=== PATIENT | female | born 1970 | race Caucasian/White ===

== ENCOUNTER 2021-09-09 09:30 | Outpatient (RCR) | payer OTHER, SELFPAY | END 2021-10-03 09:34 | disposition home or self-care (01) | LOC: ANHDMC 09:30 | PROVIDERS: PCP Emergency Medicine; Visit Provider Emergency Medicine | DX: E11.9 Type 2 diabetes mellitus without complications (principal); Z71.89 Other specified counseling | CPT/HCPCS: 99199; G0108; G0109 ==

== ENCOUNTER 2021-10-26 00:19 | Day surgery (SDC) | payer OTHER, SELFPAY ==
[2021-10-14 14:53] VITALS: BMI 25.0
[2021-10-26 10:27] VITALS: BP 151/57; PULSE 74; RESP 18; TEMP 36.4; O2SAT 100
[2021-10-26] MEDS: LACTATED RINGERS 1,000 ML 150 ML IV CONT (10:40)
--- NOTE | 2021-10-26 10:50 | WPDANESEPPF ---
Anes - Initial Pre Proc Eval Procedure: Operation Date: 10/26/21 11:30 Proposed Procedures p Colonoscopy - Kevin Martines MD Date/Time: 10/26/21 10:50 Surgeon: Kevin Martines MD Pre Op Diagnosis: weight loss, positive cologuard Patient Data Age: 51 Gender: F Height: 1.63 m Weight: 65.3 kg Last Vital Signs Temp 36.4 C L 10/26/21 10:27 Pulse 74 10/26/21 10:27 Resp 18 10/26/21 10:27 BP 151/57 H 10/26/21 10:27 Pulse Ox 100 10/26/21 10:27 Allergies Allergy/AdvReac Type Severity Reaction Status Date / Time No Known Allergies Allergy Mild Verified 10/26/21 10:25 Home Medications Medication Instructions Recorded Confirmed Type aspirin [Adult Low Dose Aspirin] 81 mg PO DAILY 10/14/21 10/14/21 History atorvastatin 20 mg PO DAILY 10/14/21 10/14/21 History duloxetine 60 mg PO DAILY 10/14/21 10/14/21 History ergocalciferol (vitamin D2) See Rx Instructions .ROUTE .COMPLEX 10/14/21 10/14/21 History gabapentin 600 mg PO TID 10/14/21 10/14/21 History glimepiride 2 mg PO BID 10/14/21 10/14/21 History hydrocodone-acetaminophen 1 tablet PO BID PRN 10/14/21 10/14/21 History metformin 500 mg PO BID 10/14/21 10/14/21 History mirtazapine 15 mg PO HS 10/14/21 10/14/21 History sitagliptin [Januvia] 100 mg PO DAILY 10/14/21 10/14/21 History Patient hx anesthesia problems: none Family hx anesthesia problems: none Results Review: All pre-operative results and documents have been reviewed as part of the pre-operative evaluation. [facility] Past Medical History Medical History (Updated 10/26/21 @ 10:51 by Marcus Dugan MD) COPD (chronic obstructive pulmonary disease) Diabetes HTN (hypertension) Hyperlipidemia Surgical History Surgical History (Updated 10/26/21 @ 10:51 by Marcus Dugan MD) History of section X 3 Social History Social History Smoking packs per day: 3 Smoking cigarettes per day: 60.0 Years smoked: 35 Smoking pack-years: 105.00 Smoking status: Former smoker Tobacco type: cigarettes Substance use: current Substance use type: marijuana Living arrangements: with family Spiritual care concerns: No Anes - Eval Final PreProcedure Day of Procedure 10/26/21 10:50 Patient weight: normal Heart: regular rate and rhythm Lungs: clear to auscultation Airway: Mallampati scale class II and other (edentulous) Neurological: alert and oriented Last oral intake: >/= 8 hours ASA classification: III Emergent: no Anesthetic plan: proceed Anesthesia type and monitoring: general GIVS and standard monitoring Results Review: All pre-operative results and documents have been reviewed as part of the pre-operative evaluation. Informed Consent: The patient's anesthetic plan and its attendant risks and benefits were discussed with the patient/family/POA. Questions were solicited and answers provided to the satisfaction of the patient/family/POA.
[2021-10-26 10:51] LABS: Glucose Point of Care 182 mg/dl (65-105)
--- NOTE | 2021-10-26 10:58 | PM.HPGS ---
History of Present Illness History of Present Illness Consent: Risks, benefits, and alternatives have been discussed and questions answered. Patient agrees to proceed with procedure. Chief complaint: weight loss, positive cologuard Narrative: Vinita Arce is a 51 year old female with positive cologuard +, she had a colonoscopy 2 years ago and was told normal Review of Systems Constitutional: Constitutional: Denies headache(s) and Denies weakness Eyes: Eyes: Denies blurry vision ENT: Reports Normal hearing present, Denies headache(s) and Denies neck pain Cardiovascular: Cardiovascular: Denies chest pain and Denies dyspnea Respiratory: Respiratory: Denies dyspnea Gastrointestinal: Gastrointestinal: Reports no additional gastrointestinal complaints Genitourinary: Genitourinary: Denies dysuria Musculoskeletal: Musculoskeletal: Denies neck pain Integumentary/Breasts: Skin/Breast: Denies dry skin Neurologic: Reports Normal hearing present, Denies headache(s) and Denies weakness Psychiatric: Psychiatric: Denies anxiety Endocrine: Endocrine: Denies change in body appearance Hematologic/Lymphatic: Hematologic/Lymphatic: Denies easy bleeding Allergic/Immunologic: Allergic/Immunologic: Denies urticaria PMFSH Past Medical History Medical History (Updated 10/26/21 @ 10:59 by Kevin Martines MD) COPD (chronic obstructive pulmonary disease) Diabetes HTN (hypertension) Hyperlipidemia Positive colorectal cancer screening using Cologuard test Surgical History Surgical History (Updated 10/26/21 @ 10:51 by aMrcus Dugan MD) History of section X 3 Social History Social History Smoking packs per day: 3 Smoking cigarettes per day: 60.0 Years smoked: 35 Smoking pack-years: 105.00 Smoking status: Former smoker Tobacco type: cigarettes Substance use: current Substance use type: marijuana Living arrangements: with family Spiritual care concerns: No Meds Home Medications and Allergies Home Medications Medication Instructions Recorded Confirmed Type aspirin [Adult Low Dose Aspirin] 81 mg PO DAILY 10/14/21 10/14/21 History atorvastatin 20 mg PO DAILY 10/14/21 10/14/21 History duloxetine 60 mg PO DAILY 10/14/21 10/14/21 History ergocalciferol (vitamin D2) See Rx Instructions .ROUTE .COMPLEX 10/14/21 10/14/21 History gabapentin 600 mg PO TID 10/14/21 10/14/21 History glimepiride 2 mg PO BID 10/14/21 10/14/21 History hydrocodone-acetaminophen 1 tablet PO BID PRN 10/14/21 10/14/21 History metformin 500 mg PO BID 10/14/21 10/14/21 History mirtazapine 15 mg PO HS 10/14/21 10/14/21 History sitagliptin [Januvia] 100 mg PO DAILY 10/14/21 10/14/21 History Allergies Allergy/AdvReac Type Severity Reaction Status Date / Time No Known Allergies Allergy Mild Verified 10/26/21 10:25 Vital Signs Vital Signs - 24 hr 10/26/21 10:27 Temperature 97.5 F L Pulse Rate 74 Respiratory Rate 18 Blood Pressure 151/57 H Pulse Oximetry 100 Exam Const: General: comfortable and no acute distress HENMT: General nose exam: Normal nares present Eyes: General: appearance normal, both eyes and all related structures Neck: Neck: no JVD Resp: Auscultation: clear to auscultation bilaterally Cardio: Rate: regular rate Rhythm: regular rhythm GI: Inspection: non-distended GI Palp: Yes Soft to palpation Skin: General skin exam: normal color Neuro: General: gait normal Speech: normal speech Extrem: General: normal to inspection Psych: Mental Status: mental status grossly normal Assessment and Plan Assessment and plan (1) Positive colorectal cancer screening using Cologuard test: Code(s): R19.5 - Other fecal abnormalities Status: Acute Assessment and Plan: colonoscopy
[2021-10-26 11:30] VITALS: BP 92/64; PULSE 95; RESP 19; O2SAT 95
[2021-10-26 11:40] VITALS: BP 127/71; PULSE 68; RESP 20; O2SAT 95
[2021-10-26 11:50] VITALS: BP 118/74; PULSE 68; RESP 20; O2SAT 94
== END 2021-10-26 12:03 | disposition home or self-care (01) ==
PROVIDERS: PCP Emergency Medicine; Visit Provider Internal Medicine Gastroenterology
PROC: 0DJD8ZZ Inspection of Lower Intestinal Tract, Via Natural or Artificial Opening Endoscopic (ICD-10-PCS; CPT 45378; principal; 2021-10-26 11:30)
DX: R19.5 Other fecal abnormalities (principal); K63.5 Polyp of colon; K64.8 Other hemorrhoids; J44.9 Chronic obstructive pulmonary disease, unspecified; E11.9 Type 2 diabetes mellitus without complications; I10 Essential (primary) hypertension; E78.5 Hyperlipidemia, unspecified; Z87.891 Personal history of nicotine dependence; Z79.84 Long term (current) use of oral hypoglycemic drugs; Z79.82 Long term (current) use of aspirin; F12.90 Cannabis use, unspecified, uncomplicated
CPT/HCPCS: 45385; 82948; 88305; J2704; J7120

== ENCOUNTER 2021-11-17 09:10 | Outpatient (RCR) | payer OTHER, SELFPAY | END 2021-11-17 10:09 | disposition home or self-care (01) | LOC: ANHDMC 09:10 | PROVIDERS: PCP Emergency Medicine; Visit Provider Emergency Medicine | DX: E11.9 Type 2 diabetes mellitus without complications (principal); Z71.89 Other specified counseling | CPT/HCPCS: G0108 ==

== ENCOUNTER 2024-11-20 01:19 | Day surgery (SDC) | payer OTHER, SELFPAY ==
[2024-11-11 10:44] VITALS: BMI 27.5
--- OUTSIDE RECORDS SUMMARY | 2024-11-20 01:30 | XMS_ITS | Continuity of Care Document ---
Author Organization [facility] Address [address] [address] [place] [address] Phone Care Team Providers Care Secondary Spanish Teacher Name Role Phone Radu Melvin MD Unavailable Unavailable Allergies, Adverse Reactions, Alerts Substance Reaction Status Criticality No Known Allergies Active No Inform ation Medications Medication Instructions Dosage Effective Dates (start - stop) Status Comments Trulicity 0.75 mg/0.5 mL subcutaneous pen injector inject (0.75MG) by subcutaneous route every week 0.75 MG - Active hydrocodone 7.5 mg-acetaminophen 325 mg tablet take 1 tablet by oral route 2 times every day as needed for pain as needed 1 tablet - Active PRN for pain, avoid driving or operate machines [employer]ystem[employer] 3 Plus Sensor device change every 14 days - Active apply to left upper arm Vitamin D2 1,250 mcg (50,000 unit) capsule take 1 capsule by oral route every two week - Active metformin 500 mg tablet take 1 tablet by oral route 2 times every day with morning and evening meals 500 MG - Active Januvia 100 mg tablet take 1 tablet by oral route every day 100 MG - Active Cymbalta 60 mg capsule,delayed release take 1 capsule by oral route every day 60 MG - Active Lipitor 20 mg tablet take 1 Tablet by oral route every day 20 MG - Active glimepiride 2 mg tablet take 1 tablet by oral route 2 times every day 2 MG - Active Neurontin 600 mg tablet take 1 tablet by oral route 3 times every day 600 MG - Active avoid driving or operate machines Wellbutrin XL 150 mg 24 hr tablet, extended release take 1 tablet by oral route every morning 150 MG - Active lisinopril 5 mg tablet take 1 tablet by oral route every day 5 MG - Active OneTouch UltraSoft Lancets BID - Active E11.9 OneTouch Verio test strips BID - Active e11.9 Ventolin HFA 90 mcg/actuation aerosol inhaler inhale 2 puff by inhalation route every 4 - 6 hours as needed as needed - Active PRN for sob Procedures Procedure Date OFFICE/OUTPATIENT VISIT, EST OFFICE/OUTPATIENT VISIT, EST OFFICE/OUTPATIENT VISIT, EST OFFICE/OUTPATIENT VISIT, EST OFFICE/OUTPATIENT VISIT, EST OFFICE/OUTPATIENT VISIT, EST OFFICE/OUTPATIENT VISIT, EST OFFICE/OUTPATIENT VISIT, EST OFFICE/OUTPATIENT VISIT, EST OFFICE/OUTPATIENT VISIT, EST OFFICE/OUTPATIENT VISIT, EST OFFICE/OUTPATIENT VISIT, EST OFFICE/OUTPATIENT VISIT, EST OFFICE/OUTPATIENT VISIT, EST OFFICE/OUTPATIENT VISIT, EST OFFICE/OUTPATIENT VISIT, EST OFFICE/OUTPATIENT VISIT, EST OFFICE/OUTPATIENT VISIT, EST OFFICE/OUTPATIENT VISIT, EST OFFICE/OUTPATIENT VISIT, EST OFFICE/OUTPATIENT VISIT, EST OFFICE/OUTPATIENT VISIT, EST OFFICE/OUTPATIENT VISIT, EST OFFICE/OUTPATIENT VISIT, EST OFFICE/OUTPATIENT VISIT, EST OFFICE/OUTPATIENT VISIT, EST OFFICE/OUTPATIENT VISIT, EST OFFICE/OUTPATIENT VISIT, EST PREV VISIT, EST, AGE 40-64 OFFICE/OUTPATIENT VISIT, EST OFFICE/OUTPATIENT VISIT, EST OFFICE/OUTPATIENT VISIT, EST OFFICE/OUTPATIENT VISIT, EST OFFICE/OUTPATIENT VISIT, EST OFFICE/OUTPATIENT VISIT, EST OFFICE/OUTPATIENT VISIT, EST OFFICE/OUTPATIENT VISIT, EST OFFICE/OUTPATIENT VISIT, EST OFFICE/OUTPATIENT VISIT, EST OFFICE/OUTPATIENT VISIT, EST OFFICE/OUTPATIENT VISIT, EST OFFICE/OUTPATIENT VISIT, EST OFFICE/OUTPATIENT VISIT, EST PREV VISIT, EST, AGE 40-64 OFFICE/OUTPATIENT VISIT, EST OFFICE/OUTPATIENT VISIT, EST OFFICE/OUTPATIENT VISIT, EST OFFICE/OUTPATIENT VISIT, EST OFFICE/OUTPATIENT VISIT, EST OFFICE/OUTPATIENT VISIT, EST OFFICE/OUTPATIENT VISIT, EST OFFICE/OUTPATIENT VISIT, EST OFFICE/OUTPATIENT VISIT, EST OFFICE/OUTPATIENT VISIT, EST OFFICE/OUTPATIENT VISIT, EST OFFICE/OUTPATIENT VISIT, EST OFFICE/OUTPATIENT VISIT, EST OFFICE/OUTPATIENT VISIT, EST OFFICE/OUTPATIENT VISIT, EST OFFICE/OUTPATIENT VISIT, EST PREV VISIT, EST, AGE 40-64 OFFICE/OUTPATIENT VISIT, EST OFFICE/OUTPATIENT VISIT, EST OFFICE/OUTPATIENT VISIT, EST OFFICE/OUTPATIENT VISIT, EST OFFICE/OUTPATIENT VISIT, EST OFFICE/OUTPATIENT VISIT, EST OFFICE/OUTPATIENT VISIT, EST OFFICE/OUTPATIENT VISIT, EST OFFICE/OUTPATIENT VISIT, EST OFFICE/OUTPATIENT VISIT, EST OFFICE/OUTPATIENT VISIT, EST PREV VISIT, EST, AGE 40-64 OFFICE/OUTPATIENT VISIT, EST OFFICE/OUTPATIENT VISIT, EST OFFICE/OUTPATIENT VISIT, EST OFFICE/OUTPATIENT VISIT, EST OFFICE/OUTPATIENT VISIT, EST OFFICE/OUTPATIENT VISIT, EST OFFICE/OUTPATIENT VISIT, EST OFFICE/OUTPATIENT VISIT, EST OFFICE/OUTPATIENT VISIT, EST OFFICE/OUTPATIENT VISIT, EST OFFICE/OUTPATIENT VISIT, EST PREV VISIT, NEW, AGE 40-64 Advance Directives Directive Yes / No Effective Date File Name No Information Encounters Encounter Description Practice Location Reason(s) For Visit Diagnoses Date Provider Providers Copied on Encounter OFFICE/OUTPA TIENT VISIT, EST [facility], [address] [facility] [place] [address], [place] tel:[phone] [facility] pain (chief complaint) DM (chief complaint) annemia1 (chief complaint) Type 2 diabetes mellitus with diabetic nephropathyChronic pain syndromeAnemiaBorde rline osteopenia 5 Olegario Lovelace. [address], [address] , [place]. [phone] OFFICE/OUTPA TIENT VISIT, [facility], [address] [facility] [place] [address], [place] tel:[phone] [facility] DM (chief complaint) anemia1 (chief complaint) HLP (chief complaint) bakc pain1 (chief complaint) Chronic pain syndromeIron deficiency anemiaMixed hyperlipidemiaType 2 diabetes mellitus with diabetic nephropathy 5 Olegario Lovelace. [address], [address] , [place]. tel:[phone] OFFICE/OUTPA TIENT VISIT, [facility], [address] [facility] [address], [place] tel:[phone] [facility] anxiety1 (chief complaint) back pain1 (chief complaint) DM (chief complaint) Mixed hyperlipidemiaType 2 diabetes mellitus with diabetic nephropathyGenerali zed Anxiety DisorderChronic pain syndromeIron deficiency anemia 5 Olegario Chase [address], [place], [place], [address] , [place]. tel:[phone] [facility], [address], [place], [place], [address], [place] tel:[phone] [facility] No Information 5 Olegario Chase [address], [place], [place], [address] , [place]. tel:[phone] OFFICE/OUTPA TIENT VISIT, [facility], [address], [place], [place], [address], [place] tel:[phone] [facility] colon polyp1 (chief complaint) pain (chief complaint) HLP (chief complaint) Mixed hyperlipidemiaChron ic pain syndromePolyp of colon 5 Olegario Chase [address], [place], [place], [address] , [place]. tel:[phone] OFFICE/OUTPA TIENT VISIT, [facility], [address], [place], [place], [address], [place] tel:[phone] [facility] pain (chief complaint) Chronic pain syndrome 4 Olegario Lovelace. [address], [place], [place], [address] , [place]. tel:[phone] OFFICE/OUTPA TIENT VISIT, [facility], [address], [place], [place], [address], [place] tel:[phone] [facility] pain (chief complaint) DM (chief complaint) anxiety1 (chief complaint) weight loss1 (chief complaint) Generalized Anxiety DisorderChronic pain syndromeType 2 diabetes mellitus with diabetic nephropathyAbnormal weight loss 4 Olegario Lovelace. [address], [place], [place], [address] , [place]. tel:[phone] OFFICE/OUTPA TIENT VISIT, [facility], [address], [place], [place], [address], [place] tel:[phone] [facility] pain (chief complaint) anxiety1 (chief complaint) weight gain1 (chief complaint) Abnormal weight gainGeneralized Anxiety DisorderChronic pain syndrome 4 Olegario Lovelace. [address], [place], [place], [address] , [place]. tel:[phone] OFFICE/OUTPA TIENT VISIT, [facility], [address], [place], [place], [address], [place] tel:[phone] [facility] pain (chief complaint) anxiety1 (chief complaint) weight gain1 (chief complaint) iron1 (chief complaint) Chronic pain syndromeAbnormal weight gainGeneralized Anxiety DisorderIron deficiency anemia 4 Olegario Lovelace. [address], [place], [place], [address] , [place]. tel:[phone] OFFICE/OUTPA TIENT VISIT, [facility], [address], [place], [place], [address], [place] tel:[phone] [facility] pain (chief complaint) anxiety1 (chief complaint) weight gain1 (chief complaint) renal (chief complaint) Abnormal weight gainChronic pain syndromeGeneralized Anxiety DisorderEssential (primary) hypertensionStage III chronic renal disease 4 Olegario Lovelace. [address], [address], [place], [place], [address] , [place]. tel:[phone] OFFICE/OUTPA TIENT VISIT, [facility], [address], [place], [place], [address], [place] tel:[phone] [facility] pain (chief complaint) anxiety (chief complaint) iron deficiency 1 (chief complaint) weight gain1 (chief complaint) Chronic pain syndromeGeneralized Anxiety DisorderAbnormal weight gainIron deficiency anemia 4 Olegario Lovelace. [address], [address], [place], [place], [address] , [place]. tel:[phone] OFFICE/OUTPA TIENT VISIT, EST [facility], [address], [place], [place], [address], [place] tel:[phone] [facility] back pain1 (chief complaint) anxiety1 (chief complaint) weight gain1 (chief complaint) Chronic pain syndromeGeneralized Anxiety DisorderAbnormal weight gain 4 Olegario Lovelace. [address], [place], [place], [address] , [place]. [phone] OFFICE/OUTPA TIENT VISIT, [facility], [address], [place], [place], [address], [place] tel:[phone] [facility] back pain1 (chief complaint) iron (chief complaint) D (chief complaint) Chronic pain syndromeIron deficiency anemiaOther specified disorder of bone densityEncntr screen mammogram for malignant neoplasm of breast 4 Olegario Lovelace. [address], [place], [place], [address] , [place]. tel:[phone] OFFICE/OUTPA TIENT VISIT, EST [facility], [address], [place], [place], [address], [place] tel:[phone] [facility] anxiety1 (chief complaint) DM (chief complaint) Iron (chief complaint) pain (chief complaint) Iron deficiency anemiaChronic pain syndromeGeneralized Anxiety DisorderType 2 diabetes mellitus with diabetic nephropathy 4 Olegario Lovelace. [address], [address], [place], [place], [address] , [place]. tel:[phone] OFFICE/OUTPA TIENT VISIT, EST [facility], [address], [place], [place], [address], [place] tel:[phone] [facility] anxiety1 (chief complaint) pain (chief complaint) iron (chief complaint) Chronic pain syndromeGeneralized Anxiety DisorderIron deficiency anemia Feb- 4 Olegario Lovelace. [address], [address], [place], [place], [address] , [place]. tel:[phone] OFFICE/OUTPA TIENT VISIT, [facility], [address], [place], [place], [address], [place] tel:[phone] [facility] iron (chief complaint) anxiety1 (chief complaint) pain (chief complaint) Iron deficiency anemiaChronic pain syndromeGeneralized Anxiety Disorder 4 Olegario Lovelace. [address], [place], [place], [address] , [place]. tel:[phone] OFFICE/OUTPA TIENT VISIT, [facility], [address], [place], [place], [address], [place] tel:[phone] [facility] HLP (chief complaint) Mixed hyperlipidemia 4 Olegario Lovelace. [address], [place], [place], [address] , [place]. tel:[phone] OFFICE/OUTPA TIENT VISIT, [facility], [address], [place], [place], [address], [place] tel:[phone] [facility] pain (chief complaint) DM (chief complaint) iron deficiecy1 (chief complaint) Chronic pain syndromeIron deficiency anemiaType 2 diabetes mellitus with diabetic nephropathy 3 Olegario Chase [address], [place], [place], [address] , [place]. tel:[phone] OFFICE/OUTPA TIENT VISIT, [facility], [address], [place], [place], [address], [place] tel:[phone] [facility] pain (chief complaint) DM (chief complaint) renal (chief complaint) iron deficiency 1 (chief complaint) Chronic pain syndromeIron deficiency anemiaType 2 diabetes mellitus with diabetic nephropathy 3 Olegario Lovelace. [address], [place], [place], [address] , [place]. tel:[phone] OFFICE/OUTPA TIENT VISIT, [facility], [address], [place], [place], [address], [place] tel:[phone] [facility] pain (chief complaint) Chronic pain syndrome May-3 3 Olegario Lovelace. [address], [place], [place], [address] , [place]. tel:[phone] OFFICE/OUTPA TIENT VISIT, [facility], [address], [place], [place], [address], [place] tel:[phone] [facility] HTN (chief complaint) Essential (primary) hypertension 0 3 Olegario Lovelace. [address], [place], [place], [address] , [place]. tel:[phone] OFFICE/OUTPA TIENT VISIT, [facility], [address], [place], [place], [address], [place] tel:[phone] [facility] pain (chief complaint) DM (chief complaint) anemia1 (chief complaint) phos1 (chief complaint) Chronic pain syndromeAnemiaType 2 diabetes mellitus with diabetic nephropathyOther disorders of phosphorus metabolism 3 Olegario Lovelace. [address], [address], [place], [place], [address] , [place]. tel:[phone] OFFICE/OUTPA TIENT VISIT, [facility], [address], [place], [place], [address], [place] tel:[phone] [facility] pain (chief complaint) Chronic pain syndrome 3 Olegario Lovelace. [address], [address], [place], [place], [address] , [place]. tel:[phone] OFFICE/OUTPA TIENT VISIT, [facility], [address], [place], [place], [address], [place] tel:[phone] [facility] back pain1 (chief complaint) renal1 (chief complaint) Chronic pain syndromeStage III chronic renal disease 3 Olegario Lovelace. [address], [place], [place], [address] , [place]. tel:[phone] OFFICE/OUTPA TIENT VISIT, [facility], [address], [place], [place], [address], [place] tel:[phone] [facility] back pain1 (chief complaint) DM (chief complaint) anxiety1 (chief complaint) Generalized Anxiety DisorderChronic pain syndromeType 2 diabetes mellitus with diabetic nephropathy Hero-3 0 3 Melvin Radu. [address], [address], [place], [place], [address] , [place]. tel:[phone] OFFICE/OUTPA TIENT VISIT, [facility], [address], [place], [place], [address], [place] tel:[phone] [facility] anxiety1 (chief complaint) pain (chief complaint) bone1 (chief complaint) Chronic pain syndromeGeneralized Anxiety DisorderOther specified disorder of bone density Hero-0 2 3 Melvin Radu. [address], [place], [place], [address] , [place]. tel:[phone] OFFICE/OUTPA TIENT VISIT, [facility], [address], [place], [place], [address], [place] tel:[phone] [facility] DM (chief complaint) pain1 (chief complaint) anxiety1 (chief complaint) weight loss1 (chief complaint) Generalized Anxiety DisorderType 2 diabetes mellitus with diabetic nephropathyChronic pain syndromeAbnormal weight lossEncounter for oth screening for malignant neoplasm of breast 0 3 Melvin Radu. [address], [address], [place], [place], [address] , [place]. tel:[phone] OFFICE/OUTPA TIENT VISIT, [facility], [address], [place], [place], [address], [place] tel:[phone] [facility] DM (chief complaint) pain (chief complaint) anxiety1 (chief complaint) Chronic pain syndromeGeneralized Anxiety DisorderType 2 diabetes mellitus with diabetic nephropathyOther specified disorder of bone density 0 3 Melvin Radu. [address], [place], [place], [address] , [place]. tel:[phone] OFFICE/OUTPA TIENT VISIT, [facility], [address], [place], [place], [address], [place] tel:[phone] [facility] anxiety1 (chief complaint) anxiety1 (chief complaint) anemia1 (chief complaint) DM (chief complaint) Chronic pain syndromeType 2 diabetes mellitus with diabetic nephropathyAnemiaOt her disorders of phosphorus metabolismGeneraliz ed Anxiety Disorder 3 Olegario Chase [address], [address], [place], [place], [address] , [place]. tel:[phone] PREV VISIT, EST, AGE 40-64 [facility], [address], [place], [place], [address], [place] tel:[phone] [facility] physical (chief complaint) Encounter for general adult medical examination without abnormal findings 3 Olegario Lovelace. [address], [place], [place], [address] , [place]. tel:[phone] OFFICE/OUTPA TIENT VISIT, [facility], [address], [place], [place], [address], [place] tel:[phone] [facility] HLP (chief complaint) pain (chief complaint) DM (chief complaint) weight gain1 (chief complaint) Abnormal weight gainChronic pain syndromeType 2 diabetes mellitus with diabetic nephropathyMixed hyperlipidemia 3 Olegario Chase [address], [place], [place], [address] , [place]. tel:[phone] OFFICE/OUTPA TIENT VISIT, [facility], [address], [place], [place], [address], [place] tel:[phone] [facility] pain (chief complaint) Chronic pain syndrome 2 Olegario Chase [address], [address], [place], [place], [address] , [place]. tel:[phone] OFFICE/OUTPA TIENT VISIT, [facility], [address], [place], [place], [address], [place] tel:[phone] [facility] pain (chief complaint) renal1 (chief complaint) Chronic pain syndromeStage III chronic renal disease 0 2 Olegario Lovelace. [address], [place], [place], [address] , [place]. tel:[phone] OFFICE/OUTPA TIENT VISIT, [facility], [address], [place], [place], [address], [place] tel:[phone] [facility] pain (chief complaint) weight gain (chief complaint) HTN (chief complaint) Chronic pain syndromeAbnormal weight gainEssential (primary) hypertension 2 Olegario Lovelace. [address], [place], [place], [address] , [place]. tel:[phone] OFFICE/OUTPA TIENT VISIT, [facility], [address], [place], [place], [address], [place] tel:[phone] [facility] pain (chief complaint) insomnia1 (chief complaint) Chronic pain syndromePrimary insomnia 2 Olegario Lovelace. [address], [address], [place], [place], [address] , [place]. tel:[phone] OFFICE/OUTPA TIENT VISIT, [facility], [address], [place], [place], [address], [place] tel:[phone] [facility] HTN (chief complaint) pain (chief complaint) Chronic pain syndromeEssential (primary) hypertension 2 Olegario Lovelace. [address], [place], [place], [address] , [place]. tel:[phone] OFFICE/OUTPA TIENT VISIT, [facility], [address], [place], [place], [address], [place] tel:[phone] [facility] anxiety1 (chief complaint) pain1 (chief complaint) HTN (chief complaint) weight gain1 (chief complaint) Essential (primary) hypertensionAbnorma l weight gainGeneralized Anxiety DisorderChronic pain syndrome 2 Olegario Lovelace. [address], [place], [place], [address] , [place]. tel:[phone] OFFICE/OUTPA TIENT VISIT, [facility], [address], [place], [place], [address], [place] tel:[phone] [facility] anxiety1 (chief complaint) pain (chief complaint) HTN (chief complaint) Essential (primary) hypertensionChronic pain syndromeAdjustment disorder with anxietyPrimary insomnia 2 Olegario Radu. [address], [place], [place], [address] , [place]. tel:[phone] OFFICE/OUTPA TIENT VISIT, [facility], [address], [address], [place] tel:[phone] [facility] anxiety1 (chief complaint) pain (chief complaint) vertigo1 (chief complaint) DM (chief complaint) HTN (chief complaint) Essential (primary) hypertensionType 2 diabetes mellitus with diabetic nephropathyChronic pain syndromeGeneralized Anxiety DisorderVertigo 2 Olegario Radu. [address], [place], [place], [address] , [place]. tel:[phone] OFFICE/OUTPA TIENT VISIT, [facility], [address], [address], [place] tel:[phone] [facility] vertigo1 (chief complaint) HTN (chief complaint) anxiety1 (chief complaint) pain (chief complaint) Chronic pain syndromeGeneralized Anxiety DisorderEssential (primary) hypertensionBenign paroxysmal vertigo, bilateralPolyp of colonEncounter for oth screening for malignant neoplasm of breast 2 Olegario Lovelace. [address], [place], [place], [address] , [place]. tel:[phone] OFFICE/OUTPA TIENT VISIT, [facility], [address], [place], [place], [address], [place] tel:[phone] [facility] anxiety1 (chief complaint) pain (chief complaint) weight loss1 (chief complaint) Chronic pain syndromeGeneralized Anxiety DisorderAbnormal weight loss 2 Olegario Lovelace. [address], [address], [place], [place], [address] , [place]. [phone] OFFICE/OUTPA TIENT VISIT, [facility], [address], [place], [place], [address], [place] [phone] [facility] HTN (chief complaint) pain1 (chief complaint) anxiety1 (chief complaint) UTI1 (chief complaint) Essential (primary) hypertensionGeneral ized Anxiety DisorderChronic pain syndromeUrinary tract infectionAbnormal weight loss 2 Olegario Lovelace. [address], [address], [place], [place], [address] , [place]. tel:[phone] OFFICE/OUTPA TIENT VISIT, [facility], [address], [place], [place], [address], [place] tel:[phone] [facility] HLP (chief complaint) renal1 (chief complaint) UTI1 (chief complaint) DM (chief complaint) colon (chief complaint) dizziness1 (chief complaint) Abnormal weight lossType 2 diabetes mellitus with diabetic nephropathyEssentia l (primary) hypertensionUrinary tract infectionHyperlipid emia 2 Olegario Lovelace. [address], [address], [place], [place], [address] , [place]. tel:[phone] OFFICE/OUTPA TIENT VISIT, [facility], [address], [place], [place], [address], [place] tel:[phone] [facility] back pain1 (chief complaint) anxiety1 (chief complaint) Chronic pain syndromeGeneralized Anxiety Disorder 2 Olegario Lovelace. [address], [place], [place], [address] , [place]. tel:[phone] PREV VISIT, EST, AGE 40-64 [facility], [address], [place], [place], [address], [place] tel:[phone] [facility] physical (chief complaint) Encounter for general adult medical examination without abnormal findings 1 Olegario Lovelace. [address], [place], [place], [address] , [place]. tel:[phone] OFFICE/OUTPA TIENT VISIT, [facility], [address], [place], [place], [address], [place] tel:[phone] [facility] pain (chief complaint) weight loss1 (chief complaint) Chronic pain syndromeAbnormal weight loss 1 Olegario Chase [address], [address], [place], [place], [address] , [place]. tel:[phone] OFFICE/OUTPA TIENT VISIT, [facility], [address], [place], [place], [address], [place] tel:[phone] [facility] pain (chief complaint) anxiety1 (chief complaint) DM (chief complaint) Type 2 diabetes mellitus with diabetic nephropathyChronic pain syndrome 1 Olegario Chase [address], [address], [place], [place], [address] , [place]. tel:[phone] OFFICE/OUTPA TIENT VISIT, [facility], [address], [place], [place], [address], [place] tel:[phone] [facility] HTN (chief complaint) anxiety1 (chief complaint) pain (chief complaint) renal (chief complaint) DM (chief complaint) Chronic pain syndromeType 2 diabetes mellitus with diabetic nephropathyAbnormal weight lossEssential (primary) hypertensionGeneral ized Anxiety Disorder 1 Olegario Lovelace. [address], [address], [place], [place], [address] , [place]. tel:[phone] OFFICE/OUTPA TIENT VISIT, [facility], [address], [place], [place], [address], [place] tel:[phone] [facility] pain (chief complaint) renal (chief complaint) Renal diseaseChronic pain syndrome 1 Olegario Lovelace. [address], [address], [place], [place], [address] , [place]. tel:[phone] OFFICE/OUTPA TIENT VISIT, [facility], [address], [place], [place], [address], [place] tel:[phone] [facility] back pain1 (chief complaint) Chronic pain syndrome 1 Olegario Lovelace. [address], [address], [place], [place], [address] , [place]. tel:[phone] OFFICE/OUTPA TIENT VISIT, [facility], [address], [place], [place], [address], [place] tel:[phone] [facility] back pain1 (chief complaint) Chronic pain syndrome 1 Olegario Lovelace. [address], [place], [place], [address] , [place]. [phone] OFFICE/OUTPA TIENT VISIT, [facility], [address], [place], [place], [address], [place] tel:[phone] [facility] pain (chief complaint) DM (chief complaint) renal (chief complaint) phos (chief complaint) Type 2 diabetes mellitus with diabetic mononeuropathyRenal diseaseOther disorders of phosphorus metabolismVitamin D deficiency, unspecifiedChronic pain syndrome 1 Olegario Lovelace. [address], [address], [place], [place], [address] , [place]. tel:[phone] OFFICE/OUTPA TIENT VISIT, [facility], [address], [place], [place], [address], [place] tel:[phone] [facility] pain1 (chief complaint) HLP (chief complaint) phos1 (chief complaint) DM (chief complaint) Chronic pain syndromeType 2 diabetes mellitus with diabetic mononeuropathyOther disorders of phosphorus metabolismHyperlipi demia 1 Olegario Lovelace. [address], [address], [place], [place], [address] , [place]. [phone] OFFICE/OUTPA TIENT VISIT, [facility], [address], [place], [place], [address], [place] tel:[phone] [facility] pain (chief complaint) DM (chief complaint) Type 2 diabetes mellitus with diabetic mononeuropathyChron ic pain syndrome 1 Olegario Lovelace. [address], [address], [place], [place], [address] , [place]. tel: [phone] OFFICE/OUTPA TIENT VISIT, [facility], [address], [place], [place], [address], [place] [phone] [facility] pain1 (chief complaint) DM (chief complaint) Type 2 diabetes mellitus with diabetic mononeuropathyChron ic pain syndrome 1 Olegario Lovelace. [address], [address], [place], [place], [address] , [place]. tel:[phone] OFFICE/OUTPA TIENT VISIT, [facility], [address], [place], [place], [address], [place] tel:[phone] [facility] pain (chief complaint) DM (chief complaint) mammo (chief complaint) Chronic pain syndromeType 2 diabetes mellitus with diabetic mononeuropathyEncou nter for oth screening for malignant neoplasm of breast 1 Olegario Lovelace. [address], [address], [place], [place], [address] , [place]. tel: [phone] OFFICE/OUTPA TIENT VISIT, [facility], [address], [place], [place], [address], [place] [phone] [facility] pain1 (chief complaint) DM (chief complaint) Chronic pain syndromeType 2 diabetes mellitus with diabetic mononeuropathy 0 Olegario Lovelace. [address], [place], [place], [address] , [place]. tel: [phone] OFFICE/OUTPA TIENT VISIT, [facility], [address], [place], [place], [address], [place] tel:[phone] [facility] pain1 (chief complaint) DM (chief complaint) Type 2 diabetes mellitus with diabetic mononeuropathyChron ic pain syndrome 0 Olegario Chase [address], [address], [place], [place], [address] , [place]. tel:[phone] OFFICE/OUTPA TIENT VISIT, [facility], [address] [place], [address], [place] tel:[phone] [facility] DM (chief complaint) Hypertensi on (chief complaint) Back pain 1 (chief complaint) Type 2 diabetes mellitus with diabetic mononeuropathyChron ic pain syndromeEssential (primary) hypertension 0 Olegario Chase [address], [address], [place], [place], [address] , [place]. tel:[phone] OFFICE/OUTPA TIENT VISIT, [facility], [address] [place], [address], [place] tel:[phone] [facility] HTN (chief complaint) DM (chief complaint) anxiety1 (chief complaint) pain (chief complaint) renal (chief complaint) Chronic pain syndromeType 2 diabetes mellitus with diabetic mononeuropathyRenal diseaseOther disorders of phosphorus metabolismEssential (primary) hypertension 0 Olegario Chase [address], [place], [place], [address] , [place]. tel:[phone] OFFICE/OUTPA TIENT VISIT, [facility], [address] [place], [address], [place] tel:[phone] [facility] pain (chief complaint) Chronic pain syndrome 0 Olegario Chase [address], [address] [place], [address] , [place]. tel:[phone] PREV VISIT, EST, AGE 40-64 [facility], [address] [place], [address], [place] tel:[phone] [facility] physical (chief complaint) Encntr for general adult medical exam w/o abnormal findings 0 Olegario Lovelace. [address], [place], [place], [address] , [place]. tel:[phone] Referring Provider: Renetta Badillo [address], [place], [place], [address]. tel:[phone] OFFICE/OUTPA TIENT VISIT, [facility], [address], [place], [place], [address], [place] tel:[phone] [facility] pain (chief complaint) Chronic pain syndrome 0 Olegario Lovelace. [address], [place], [place], [address] , [place]. tel:[phone] Referring Provider: Renetta Badillo [address], [place], [place], [address]. tel:[phone] OFFICE/OUTPA TIENT VISIT, [facility], [address], [place], [place], [address], [place] tel:[phone] [facility] pain (chief complaint) HLP (chief complaint) anxiety1 (chief complaint) DM (chief complaint) HyperlipidemiaChron ic pain syndromeType 2 diabetes mellitus with diabetic mononeuropathyDepre ssion 0 Olegario Lovelace. [address], [place], [place], [address] , [place]. tel:[phone] Referring Provider: Renetta Badillo [address], [place], [place], [address]. tel:[phone] OFFICE/OUTPA TIENT VISIT, [facility], [address], [place], [place], [address], [place] tel:[phone] [facility] pain (chief complaint) Chronic pain syndrome 0 Olegario Lovelace. [address], [place], [place], [address] , [place]. tel:[phone] Referring Provider: Renetta Badillo [address], [place], [place], [address]. tel:[phone] OFFICE/OUTPA TIENT VISIT, [facility], [address], [place], [place], [address], [place] tel:[phone] [facility] pain (chief complaint) HTN (chief complaint) Chronic pain syndromeEssential (primary) hypertension 0 Olegario Lovelace. [address], [place], [place], [address] , [place]. tel:[phone] Referring Provider: Radu Melvin, [address], [place], [place], [address]. tel:[phone] OFFICE/OUTPA TIENT VISIT, [facility], [address], [place], [place], [address], [place] tel:[phone] [facility] pain1 (chief complaint) HLP (chief complaint) Chronic pain syndromeHyperlipide irma 0 Olegario Lovelace. [address], [place], [place], [address] , [place]. tel:[phone] Referring Provider: Radu Melvin, [address], [place], [place], [address]. tel:[phone] OFFICE/OUTPA TIENT VISIT, [facility], [address], [place], [place], [address], [place] tel:[phone] [facility] pain (chief complaint) Chronic pain syndrome 0 Olegario Lovelace. [address], [place], [place], [address] , [place]. tel:[phone] Referring Provider: Radu Melvin, [address], [place], [place], [address]. tel:[phone] OFFICE/OUTPA TIENT VISIT, [facility], [address], [place], [place], [address], [place] tel:[phone] [facility] pain1 (chief complaint) anxiety1 (chief complaint) Chronic pain syndromeDepression - 9 Olegario Lovelace. [address], [place], [place], [address] , [place]. tel:[phone] Referring Provider: Renetta Badillo [address], [place], [place], [address]. tel:[phone] OFFICE/OUTPA TIENT VISIT, [facility], [address], [place], [place], [address], [place] tel:[phone] [facility] chronic pain1 (chief complaint) depression 1 (chief complaint) DM (chief complaint) postmeno (chief complaint) DyspareuniaChronic pain syndromeType 2 diabetes mellitus with diabetic mononeuropathyDepre ssion 9 Olegario Lovelace. [address], [place], [place], [address] , [place]. tel:[phone] Referring Provider: Renetta Badillo [address], [place], [place], [address]. tel:[phone] OFFICE/OUTPA TIENT VISIT, [facility], [address], [place], [place], [address], [place] tel:[phone] [facility] back pain1 (chief complaint) GERD1 (chief complaint) renal (chief complaint) pain1 (chief complaint) Chronic pain syndromeRenal diseaseGERD w/o esophagitisDyspareu ofelia 9 Olegario Lovelace. [address], [place], [place], [address] , [place]. tel:[phone] Referring Provider: Renetta Badillo [address], [place], [place], [address]. tel:[phone] OFFICE/OUTPA TIENT VISIT, [facility], [address], [place], [place], [address], [place] tel:[phone] [facility] chronic pain (chief complaint) sob (chief complaint) mamm (chief complaint) EmphysemaChronic pain syndromeEncounter for oth screening for malignant neoplasm of breast 9 Olegario Lovelace. [address], [place], [place], [address] , [place]. tel:[phone] Referring Provider: Renetta Badillo [address], [place], [place], [address]. tel:[phone] OFFICE/OUTPA TIENT VISIT, EST [facility], [address], [place], [place], [address], tel:[phone] [facility] dermatitis 1 (chief complaint) glucose1 (chief complaint) leukopenia 1 (chief complaint) renal1 (chief complaint) chronic pain1 (chief complaint) metabolic1 (chief complaint) Chronic pain syndromeHyperglycem iaLeukopeniaVitamin D deficiency, unspecifiedRenal diseaseContact dermatitis due to plant, except food 9 Olegario Lovelace. [address], [place], [place], [address] , [place]. [phone] Referring Provider: Renetta Badillo [address], [place], [place], [address]. tel:[phone] PREV VISIT, EST, AGE 40-64 [facility], [address], [place], [place], [address], [place] tel:[phone] [facility] Physical (chief complaint) Encntr for general adult medical exam w/o abnormal findings 9 Olegario Lovelace. [address], [place], [place], [address] , [place]. [phone] Referring Provider: Renetta Badillo [address], [place], [place], [address]. tel:[phone] OFFICE/OUTPA TIENT VISIT, EST [facility], [address], [place], [place], [address], [place] tel:[phone] [facility] DM (chief complaint) HLP (chief complaint) chronic pain1 (chief complaint) Anemia1 (chief complaint) HyperlipidemiaType 2 diabetes mellitus with diabetic mononeuropathyChron ic pain syndromeAnemia 9 Olegario Lovelace. [address], [place], [place], [address] , [place]. [phone] Referring Provider: [address], [place], [place], [address]. tel:[phone] OFFICE/OUTPA TIENT VISIT, [facility], [address], [place], [place], [address], [place] tel:[phone] [facility] back pain1 (chief complaint) emphysema1 (chief complaint) Chronic pain syndromeEmphysema 9 Olegario Lovelace. [address], [place], [place], [address] , [place]. tel:[phone] Referring Provider: Renetta Badillo [address], [place], [place], [address]. tel:[phone] OFFICE/OUTPA TIENT VISIT, [facility], [address], [place], [place], [address], [place] tel:[phone] [facility] chronic pain1 (chief complaint) Chronic pain syndromeRenal disease 9 Olegario Lovelace. [address], [place], [place], [address] , [place]. tel:[phone] Referring Provider: Renetta Badillo [address], [place], [place], [address]. tel:[phone] OFFICE/OUTPA TIENT VISIT, [facility], [address], [place], [place], [address], [place] tel:[phone] [facility] back pain1 (chief complaint) neck pain1 (chief complaint) copd1 (chief complaint) GERD1 (chief complaint) EmphysemaChronic pain syndromeCervicalgia GERD w/o esophagitis 9 Olegario Lovelace. [address], [place], [place], [address] , [place]. tel:[phone] Referring Provider: Renetta Badillo [address], [place], [place], [address]. tel:[phone] OFFICE/OUTPA TIENT VISIT, [facility], [address], [place], [place], [address], [place] tel:[phone] [facility] back pain1 (chief complaint) Chronic pain syndrome 9 Olegario Lovelace. [address], [place], [place], [address] , [place]. tel:[phone] Referring Provider: Renetta Badillo [address], [place], [place], [address]. tel:[phone] OFFICE/OUTPA TIENT VISIT, [facility], [address] [place], [address], [place] tel:[phone] [facility] HLP (chief complaint) back pain1 (chief complaint) DM (chief complaint) Type 2 diabetes mellitus with diabetic mononeuropathyChron ic pain syndromeHyperlipide miaRenal disease 9 Olegario Lovelcae. [address], [place], [place], [address] , [place]. tel:[phone] Referring Provider: Renetta Badillo [address], [place], [place], [address]. tel:[phone] OFFICE/OUTPA TIENT VISIT, [facility], [address] [place], [address], [place] tel:[phone] [facility] HTN (chief complaint) renal disease1 (chief complaint) DM (chief complaint) back pain1 (chief complaint) Renal diseaseType 2 diabetes mellitus with diabetic mononeuropathyEssen tial (primary) hypertensionChronic pain syndrome 8 Olegario Lovelace. [address], [place], [place], [address] , [place]. tel:[phone] Referring Provider: Renetta Badillo [address], [place], [place], [address]. tel:[phone] OFFICE/OUTPA TIENT VISIT, [facility], [address], [address], [place] tel:[phone] [facility] DM (chief complaint) anemia1 (chief complaint) renal1 (chief complaint) back pain1 (chief complaint) Type 2 diabetes mellitus with diabetic mononeuropathyAnemi aRenal diseaseHyperkalemia Chronic pain syndrome 2 0201 8 Olegario Lovelace. [address], [place], [place], [address] , [place]. tel:[phone] Referring Provider: Renetta Badillo [address], [place], [place], [address]. tel:[phone] OFFICE/OUTPA TIENT VISIT, [facility], [address], [place], [place], [address], [place] tel:[phone] [facility] anemia1 (chief complaint) kcl (chief complaint) back pain1 (chief complaint) HTn (chief complaint) Essential (primary) hypertensionHyperka lemiaRenal diseaseAnemiaChroni c pain syndrome 5 8 Olegario Lovelace. [address], [place], [place], [address] , [place]. tel:[phone] Referring Provider: Renetta Badillo [address], [place], [place], [address]. tel:[phone] OFFICE/OUTPA TIENT VISIT, [facility], [address], [place], [address], [place] tel:[phone] [facility] anemia1 (chief complaint) renal disease1 (chief complaint) KCL (chief complaint) back pain1 (chief complaint) HyperkalemiaRenal diseaseChronic pain syndromeEssential (primary) hypertensionAnemia 8 Olegario Lovelace. [address], [place], [place], [address] , [place]. tel:[phone] Referring Provider: Renetta Badillo [address], [place], [place], [address]. tel:[phone] OFFICE/OUTPA TIENT VISIT, [facility], [address], [place], [place], [address], [place] tel:[phone] [facility] DM (chief complaint) renal (chief complaint) anemia1 (chief complaint) chronic pain1 (chief complaint) AnemiaRenal diseaseHyperkalemia Essential (primary) hypertensionChronic pain syndromeType 2 diabetes mellitus with diabetic mononeuropathy 8 Olegario Lovelace. [address], [facility] [place], [address] , . [phone] Referring Provider: Renetta Badillo [address], [place], [place], [address]. tel:[phone] PREV VISIT, NEW, AGE 40-64 [facility], [address], [place], [place], [address], tel:[phone] [facility] PHysical (chief complaint) Encntr for general adult medical exam w/o abnormal findings 8 Olegario Lovelace. [address], [place], [place], [address] , . [phone] Referring Provider: Renetta Badillo [place], [place], [address]. tel:[phone] Family History Family Member Type Diagnosis Age At Onset Father Problem (finding) COPD (Cause Of ) 6 3 Mother Problem (finding) Alive and well Sister Problem (finding) Alive and well Mother Problem (finding) Diabetes mellitus Payers Payer name Insurance type Covered libertarian ID Authortirsoa rebeca(s) [facility] [id number] Social History Type Description Quantity Date Captured Comments Alcohol Use Details No Caffeine Use Details Unknown Tobacco Use Status Ex-cigarette smoker 025 Smoking Status Former smoker Sex Female Vital Signs Date / Time: Height Weight BMI Pulse Rate Blood Pressure Temperature Respiratory Rate Body Surface Area Head Circumference BMI percentile Pulse Ox Inhaled Ox 11:10 AM 64.00 in 156.00 lbs 26.7 8 kg/m eter (2) 78 /min 110/70 mm[Hg] 97.2 F 16 /min Chief Complaint And Reason For Visit From encounter dated '11/18/2024 10:58'. pain (chief complaint). Description: Pt has chronic low back pain Pt denies any worsening pain pt denies any loss of bladder control. Pt failed NSAID and ultram. Pt has DDD. Pt takes norco PRN for pain and dong ok Pt has numbness both leg and feet Pt takes neurontin. Pt denies any claudication. pt denies any cold feet. Pt denies any saddle area paresthesia. Pt takes norco and neurontin and doing ok currently DM (chief complaint). Description: Pt has DM Pt is on metformin, januvia and amaryl and januvia Pt tolerating januvia ok. Pt has not checked her glucose for a while Pt wants to try freestyle annemia1 (chief complaint). Description: Pt has stable anemia. Pt has monty for colonoscopy in one week Plan Of Treatment Date Type Action Status Goal Tobacco cessation counseling completed Goal Tobacco cessation counseling completed Goal Special diet education compl eted Goal Tobacco cessation counseling completed Goal Tobacco cessation counseling completed Goal Special diet education compl eted Goal Tobacco cessation counseling completed Goal Special diet education compl eted Goal Tobacco cessation counseling completed Goal Special diet education compl eted Goal Tobacco cessation counseling completed Goal Tobacco cessation counseling completed Goal Special diet education compl eted Goal Tobacco cessation counseling completed Goal Special diet education compl eted Goal Prescribed dietary intake co mpleted Goal Tobacco cessation counseling completed Goal Special diet education compl eted Goal Tobacco cessation counseling completed Goal Special diet education compl eted Goal Tobacco cessation counseling completed Goal Tobacco cessation counseling completed Goal Special diet education compl eted Goal Special diet education compl eted Goal Special diet education compl eted Goal Tobacco cessation counseling completed Goal Special diet education compl eted Goal Special diet education compl eted Referral Ordered: US, PELVIC (NONOBSTETRIC); ordered Referral Ordered: Hematology (related to Iron deficiency anemia) ordered Referral Ordered: Referrals: Hematology. Evaluate and treat ordered Referral Ordered: Physical Therapy (related to Type 2 diabetes mellitus with diabetic nephropathy) ordered Referral Referred To: Physical Therapy Ordered: Referrals: Physical Therapy. Evaluate and treat ordered Referral Ordered: Saige Callahan -[facility] Phys[facility] : Family Medicine (related to Dyspareunia) ordered Referral Ordered: DXA BONE DENSITY, AXIAL ordered Referral Referred To: Saige Callahan [address] [facility] [place], [place], [phone] Ordered: Referrals: Allopathic & Osteopathic Physicians : Family Medicine. Saige Callahan. Evaluate and treat ordered Referral Ordered: CHEST X-RAY PA/LAT TWO-VIEWS ordered Referral Ordered: US CAROTID ordered Referral Ordered: CERVICAL SPINE XRAY 7 VIEWS ordered Referral Ordered: LUMBAR XRAY AP AND LAT ONLY ordered Referral Ordered: Vic Valencia -[facility] : Internal Medicine : Nephrology (related to Hyperkalemia) ordered Referral Referred To: Vic Valencia [address] [facility] [place], [place] [phone] Ordered: Referrals: Allopathic & Osteopathic Physicians : Internal Medicine : Nephrology. Vic Valencia. Evaluate and treat ordered Referral Ordered: COLONOSCOPY AND BIOPSY ordered Referral Ordered: MAMMOGRAM, SCREENING ordered Appointment [place]a Arce BOOKED History Of Present Illness Encounter Date Complaint History Of Prese nt Illness pain Pt has chronic l ow back pain Pt denies any worsening pain pt denies any loss of bladder control. Pt failed NSAID and ultram. Pt has DDD. Pt takes norco PRN for pain and dong ok Pt has numbness both leg and feet Pt takes neurontin. Pt denies any claudication. pt denies any cold feet. Pt denies any saddle area paresthesia. Pt takes norco and neurontin and doing ok currently DM Pt has DM Pt is on metformin, januvia and amaryl and januvia Pt tolerating januvia ok. Pt has not checked her glucose for a while Pt wants to try freestyle annemia1 Pt has stable an emia. Pt has monty for colonoscopy in one week bakc pain1 Pt has chronic l ow back pain Pt denies any worsening pain pt denies any loss of bladder control. Pt failed NSAID and ultram. Pt has DDD. Pt takes norco PRN for pain and dong ok Pt has numbness both leg and feet Pt takes neurontin. Pt denies any claudication. pt denies any cold feet. Pt denies any saddle area paresthesia. Pt takes norco and neurontin and doing ok currently DM Pt has DM Pt edie es on metformin, januvia and amaryl and her glucose and a1c are worse. Pt denies any polyuria, polydipsia anemia1 pt has mild anem ia but iron ok Pt has colonoscopy scheduled soon. her renal function is normal now. pt denies any bleeding HLP Pt has HLP Her l ipid profile is ok with lipitor anxiety1 Pt has chronic a nxiety and depression Pt takes wellbutrin and cymbalta and doing ok Pt denies any suicidal or homicidal thought. pt denies any crying spells DM Pt has DM Pt edie es metformin and januvia and amaryl. Her glucose is around 120. pt denies any polyuria, polydipsia. back pain1 Pt has chronic l ow back pain Pt denies any worsening pain pt denies any loss of bladder control. Pt failed NSAID and ultram. Pt has DDD. Pt takes norco PRN for pain and dong ok Pt has numbness both leg and feet Pt takes neurontin. Pt denies any claudication. pt denies any cold feet. Pt denies any saddle area paresthesia. Pt takes norco and neurontin and doing ok currently HLP Pt has HLP Pt ta kes lipitor pt denies any myalgia Pt needs lipitor refilled colon polyp1 Pt has serrated polyps on colonoscopy 2021. Pt denies any GI issue. pain Pt has chronic l ow back pain Pt denies any worsening pain pt denies any loss of bladder control. Pt failed NSAID and ultram. Pt has DDD. Pt takes norco PRN for pain and dong ok Pt has numbness both leg and feet Pt takes neurontin. Pt denies any claudication. pt denies any cold feet. Pt denies any saddle area paresthesia. Pt takes norco and neurontin and doing ok currently pain Pt has chronic l ow back pain Pt denies any worsening pain pt denies any loss of bladder control. Pt failed NSAID and ultram. Pt has DDD. Pt takes norco PRN for pain and dong ok Pt has numbness both leg and feet Pt takes neurontin. Pt denies any claudication. pt denies any cold feet. Pt denies any saddle area paresthesia. Pt takes norco and neurontin and doing ok currently pain Pt has chronic l ow back pain Pt denies any worsening pain pt denies any loss of bladder control. Pt failed NSAID and ultram. Pt has DDD. Pt takes norco PRN for pain and dong ok Pt has numbness both leg and feet Pt takes neurontin. Pt denies any claudication. pt denies any cold feet. Pt denies any saddle area paresthesia. Pt takes norco and neurontin and doing ok currently DM Pt has DM Pt edie es metformin ,januvia and amaryl .Pt has not been checking her glucose Pt denies any hypoglycemia episodes. Pt doing ok anxiety1 Pt has chronic a nxiety and depression and she is taking cymbalta and wellbutrin and doing ok Pt is off abilify and she has been doing ok Pt denies any suicidal or homicidal thought Pt denies any crying spells weight loss1 Pt lost 7 pounds since off abilify. anxiety1 Pt has chronic a nxiety and depression. Pt takes wellbutrin and Cymbalta and doing ok. Pt has not had abilify last month . weight gain1 Pt has been gain ing weight. Pt stopped abilify already. pain Pt has chronic l ow back pain Pt denies any worsening pain pt denies any loss of bladder control. Pt failed NSAID and ultram. Pt has DDD. Pt takes norco PRN for pain and dong ok Pt has numbness both leg and feet Pt takes neurontin. Pt denies any claudication. pt denies any cold feet. Pt denies any saddle area paresthesia. Pt takes norco and neurontin and doing ok currently anxiety1 Pt has chronic a nxiety and depression Pt takes cymbalta, wellbutrin and abilify and she is doing well P denies any suicidal or homicidal thought Pt denies any crying spells. pain Pt has chronic l ow back pain Pt denies any worsening pain pt denies any loss of bladder control. Pt failed NSAID and ultram. Pt has DDD. Pt takes norco PRN for pain and dong ok Pt has numbness both leg and feet Pt takes neurontin. Pt denies any claudication. pt denies any cold feet. Pt denies any saddle area paresthesia. Pt takes norco and neurontin and doing ok currently weight gain1 Pt has been gain ing weight ,which is probably due to abilify Pt does not increasing appetite with abilify iron1 Pt has iron defi ciency anemia Pt is receiving iron infusions Pt just saw hematology and had lab done Pt denies any bleeding anxiety1 Pt has chronic a nxiety and depression Pt takes cymbalta, wellbutrin and abilify and she is doing well P denies any suicidal or homicidal thought Pt denies any crying spells. weight gain1 Pt has been gain ing weight with abilify. renal Pt has stage III renal disease. Pt saw nephrology yesterday and her kcl is borderline high Pt was told to monitor pain Pt has chronic l ow back pain Pt denies any worsening pain pt denies any loss of bladder control. Pt failed NSAID and ultram. Pt has DDD. Pt takes norco PRN for pain and dong ok Pt has numbness both leg and feet Pt takes neurontin. Pt denies any claudication. pt denies any cold feet. Pt denies any saddle area paresthesia. Pt takes norco and neurontin and doing ok currently anxiety Additional infor mabel: Pt has chronic anxiety and depression Pt takes cymbalta, wellbutrin and abilify and she is doing well P denies any suicidal or homicidal thought Pt denies any crying spells. pain Pt has chronic l ow back pain Pt denies any worsening pain pt denies any loss of bladder control. Pt failed NSAID and ultram. Pt has DDD. Pt takes norco PRN for pain and dong ok Pt has numbness both leg and feet Pt takes neurontin. Pt denies any claudication. pt denies any cold feet. Pt denies any saddle area paresthesia. Pt takes norco and neurontin and doing ok currently iron deficiency1 pT has iron def iciency anemia. s/p iron infusion recently and she just had lab done by hematology. Pt denies any bleeding Pt has not done pelvic ultrasound yet weight gain1 Pt has been gain ing weight. Pt is on 5 mg abilify now back pain1 Pt has chronic l ow back pain Pt denies any worsening pain pt denies any loss of bladder control. Pt failed NSAID and ultram. Pt has DDD. Pt takes norco PRN for pain and dong ok Pt has numbness both leg and feet Pt takes neurontin. Pt denies any claudication. pt denies any cold feet. Pt denies any saddle area paresthesia. Pt takes norco and neurontin and doing ok currently anxiety1 Pt has chronic a nxiety and depression Pt takes cymbalta, wellbutrin and abilify and she is doing well P denies any suicidal or homicidal thought Pt denies any crying spells. Her mood is much better now weight gain1 Pt has been gain ing weight .Pt notices increasing appetite lately pt has been taking 10 mg abilify for the past 3 months iron Pt has iron defi ciency anemia Pt has not done pelvic ultrasound yet. D Pt has vitamin D deficiency Pt takes calcium as well. back pain1 Pt has chronic l ow back pain Pt denies any worsening pain pt denies any loss of bladder control. Pt failed NSAID and ultram. Pt has DDD. Pt takes norco PRN for pain and dong ok Pt has numbness both leg and feet Pt takes neurontin. Pt denies any claudication. pt denies any cold feet. pt doing ok Pt denies any saddle area paresthesia. Pt takes norco and neurontin and she has been taking 5 mg norco for long time and it does not work anymore for her pain anxiety1 Pt has chronic a nxiety and depression . pt feels sluggish and lack of energy and lack of motivation with frequent crying spells. Pt is on cymbalta and abilify currently Pt denies any suicidal or homicidal thought.. Pt is on cymbalta, abilify and wellbutrin and overall her mood improved but she still does not feel happy DM Pt has DM, Pt ta kes januvia, metformin and amaryl and trulicity Pt states that her glucose is around 100 Pt denies any hypoglycemia. Iron Pt has iron defi ciency anemia Pt is seeing hematology and she failed oral iron supplement and she just received several rounds of iron infusion Pt does feel fatigue Pt denies any dizziness or sob. Pt has not noticed any improvement in her mood pain Pt has chronic l ow back pain Pt denies any worsening pain pt denies any loss of bladder control. Pt failed NSAID and ultram. Pt has DDD. Pt takes norco PRN for pain and dong ok Pt has numbness both leg and feet Pt takes neurontin. Pt denies any claudication. pt denies any cold feet. pt doing ok Pt denies any saddle area paresthesia. Pt takes norco and neurontin and doing ok pain Pt has chronic l ow back pain Pt denies any worsening pain pt denies any loss of bladder control. Pt failed NSAID and ultram. Pt has DDD. Pt takes norco PRN for pain and dong ok Pt has numbness both leg and feet Pt takes neurontin. Pt denies any claudication. pt denies any cold feet. pt doing ok Pt denies any saddle area paresthesia. Pt takes norco and neurontin and doing ok iron Pt has iron defi ciency anemia Pt denies any bleeding Pt has not done UA yet Pt did shredder picker fecal card. Pt saw hematology and she is on oral iron now. Pt denies any dizziness anxiety1 Pt has chronic a nxiety and depression Pt feels worsening depression lately. pt feels sluggish and lack of energy and lack of motivation with frequent crying spells. Pt is on cymbalta and abilify currently Pt denies any suicidal or homicidal thought. Pt started wellbutrin and higher dose of abilify last month and she notices improvement of her mood iron Pt has iron defi ciency anemia Pt feels very fatigue Pt denies any bleeding Pt has not done UA and fecal globin yet. Pt saw hematology who started her on oral iron only anxiety1 Pt has chronic a nxiety and depression Pt feels worsening depression lately. pt feels sluggish and lack of energy and lack of motivation with frequent crying spells. Pt is on cymbalta and abilify currently Pt denies any suicidal or homicidal thought pain Pt has chronic l ow back pain Pt denies any worsening pain pt denies any loss of bladder control. Pt failed NSAID and ultram. Pt has DDD. Pt takes norco PRN for pain and dong ok Pt has numbness both leg and feet Pt takes neurontin. Pt denies any claudication. pt denies any cold feet. pt doing ok Pt denies any saddle area paresthesia. Pt takes norco and neurontin and doing ok HLP Pt has HLP Pt ta kes lipitor and her lipid profile is ok Pt denies any myalgia. PT needs lipitor refilled DM Pt has DM Pt edie es metformin, Januvia, trulicity and amaryl. her glucose is around 110. Pt needs trulicity refilled. iron deficiecy1 PPt has iron def iciency anemia Pt denies any bleeding. pt does feel fatigue Pt has appointment with hematology in two weeks. pain Pt has chronic l ow back pain Pt denies any worsening pain pt denies any loss of bladder control. Pt failed NSAID and ultram. Pt has DDD. Pt takes norco PRN for pain and dong ok Pt has numbness both leg and feet Pt takes neurontin. Pt denies any claudication. pt denies any cold feet. pt doing ok Pt denies any saddle area paresthesia. Pt takes norco and neurontin and doing ok DM Pt has DM. Pt ta kes trulicity, metformin, januvia and amaryl and her glucose and a1c is improving pain Pt has chronic l ow back pain Pt denies any worsening pain pt denies any loss of bladder control. Pt failed NSAID and ultram. Pt has DDD. Pt takes norco PRN for pain and dong ok Pt has numbness both leg and feet Pt takes neurontin. Pt denies any claudication. pt denies any cold feet. pt doing ok Pt denies any saddle area paresthesia. Pt takes norco and neurontin and doing ok renal Pt has low renal function Pt sees nephrology. her renal function is almost normal iron deficiency1 Pt has low iron deficiency anemia. Pt denies any blood loss. Pt had negative EGD and colonoscopy Pt denies any TYPE CASTER bleeding Pt does c/o fatigue pain Pt has chronic l ow back pain Pt denies any worsening pain pt denies any loss of bladder control. Pt failed NSAID and ultram. Pt has DDD. Pt takes norco PRN for pain and dong ok Pt has numbness both leg and feet Pt takes neurontin. Pt denies any claudication. pt denies any cold feet. pt doing ok Pt denies any saddle area paresthesia. Pt takes norco and neurontin and doing ok HTN Pt has HTN. Pt t akes lisinopril and her bp is stable .Pt needs lisinopril refilled. Pt denies any chest pain or headache. DM PT has DM Pt edie es metformin, amaryl, januvia and trulicity and she has not been checking her glucose at home anemia1 Pt has mild anem ia Pt denies any blood loss. phos1 Pt has borderlin e high phos pain Pt has chronic l ow back pain Pt denies any worsening pain pt denies any loss of bladder control. Pt failed NSAID and ultram. Pt has DDD. Pt takes norco PRN for pain and dong ok Pt has numbness both leg and feet Pt takes neurontin. Pt denies any claudication. pt denies any cold feet. pt doing ok Pt denies any saddle area paresthesia pain Pt has chronic l ow back pain Pt denies any worsening pain pt denies any loss of bladder control. Pt failed NSAID and ultram. Pt has DDD. Pt takes norco PRN for pain and dong ok Pt has numbness both leg and feet Pt takes neurontin. Pt denies any claudication. pt denies any cold feet. pt doing ok Pt denies any saddle area paresthesia back pain1 Pt has chronic l ow back pain Pt denies any worsening pain pt denies any loss of bladder control. Pt failed NSAID and ultram. Pt has DDD. Pt takes norco PRN for pain and dong ok Pt has numbness both leg and feet Pt takes neurontin. Pt denies any claudication. pt denies any cold feet. pt doing ok Pt denies any saddle area paresthesia renal1 pt has low renal .Pt saw nephrology recently and was told everything ok. back pain1 Pt has chronic l ow back pain Pt denies any worsening pain pt denies any loss of bladder control. Pt failed NSAID and ultram. Pt has DDD. Pt takes norco PRN for pain and dong ok Pt has numbness both leg and feet Pt takes neurontin. Pt denies any claudication. pt denies any cold feet. pt doing ok Pt denies any saddle area paresthesia DM Pth as DM Pt edie es metformin, januvia, amaryl and trulicity and she needs trulicity refilled .Pt states that her glucose is around 120s . anxiety1 Pt has chronic a nxiety and depression Pt takes cymbalta and abilify and doing well pt denies any suicidal or homicidal thought Pt denies any crying spells anxiety1 Pt has chronic a nxiety and depression Pt doing well with cymbalta and abilify Pt denies any suicidal or homicidal thought Pt denies any crying spells. Pt states that higher dose of abilify works better for her bone1 Pt had bone dens ity done which showed normal bone density. Pt also had normal mammo pain Pt has chronic l ow back pain Pt denies any worsening pain pt denies any loss of bladder control. Pt failed NSAID and ultram. Pt has DDD. Pt takes norco PRN for pain and dong ok Pt has numbness both leg and feet Pt takes neurontin. Pt denies any claudication. pt denies any cold feet. pt doing ok Pt denies any saddle area paresthesia pain1 Pt has chronic l ow back pain Pt denies any worsening pain pt denies any loss of bladder control. Pt failed NSAID and ultram. Pt has DDD. Pt takes norco PRN for pain and dong ok Pt has numbness both leg and feet Pt takes neurontin. Pt denies any claudication. pt denies any cold feet. pt doing ok Pt denies any saddle area paresthesia DM Pt has DM pt edie es metformin, amaryl, Januvia and trulicity. Her glucose is around 115. Pt denies any GI side effects anxiety1 Pt has chronic a nxiety and depression pt takes cymbalta and abilify and she feels much better but she still has lack of motivation and she still feels up and down and she still does not have any interests to do anything out doors. Pt denies any suicidal or homicidal thought Pt denies any crying spells weight loss1 Pt has been losi ng weight with diet and exercise and also trulicity helps as well. DM Pt has DM Pt edie es metformin, amaryl and januvia and trulicity 3 mg and she feels better and she lost some weight as well pt has not been checking her glucose. Pt denies any hypoglycemia pain Pt has chronic l ow back pain Pt denies any worsening pain pt denies any loss of bladder control. Pt failed NSAID and ultram. Pt has DDD. Pt takes norco PRN for pain and dong ok Pt has numbness both leg and feet Pt takes neurontin. Pt denies any claudication. pt denies any cold feet. pt doing ok Pt denies any saddle area paresthesia anxiety1 Pt has chronic a nxiety and depression .Pt takes Cymbalta and abilify and doing ok pt denies any suicidal or homicidal thought Pt denies any crying spells anxiety1 Pt has chronic l ow back pain Pt denies any worsening pain pt denies any loss of bladder control. Pt failed NSAID and ultram. Pt has DDD. Pt takes norco PRN for pain and dong ok Pt has numbness both leg and feet Pt takes neurontin. Pt denies any claudication. pt denies any cold feet. pt doing ok Pt denies any saddle area paresthesia anxiety1 Pt has chronic a nxiety and depression pt takes cymbalta and abilify and doing ok pt denies any suicidal or homicidal thought Pt denies any crying spells Pt states that her mood is better with abilify anemia1 Pt has mild anem ia Pt denies an blood loss DM Pt has DM, pt ta kes metformin, Januvia, and amaryl and trulicity Pt states that her glucose is around 130s Her A1c is 6.8 physical Pt needs annual physical. Pt has chronic low back pain Pt has DDD Pt denies any sciatica .Pt denies any saddle area paresthesia Pt denies any loss of bowel or bladder control. pt has HTN Pt takes lisinopril and her bp is ok. . Pt has chronic anxiety and depression and she takes cymbalta but she still feels very depressed. Pt denies any suicidal or homicidal thought Pt denies any crying spells. Pt does not have interests to do anything. Pt has DM pt takes metformin, januvia and amaryl and she started trulicity last month. Her glucose is around 120s at home. Pt tolerating trulicity ok. Pt denies any nausea, vomiting, early satiety, change of bowel, diarrhea, blood in stool, abd pain, etc. DM Pt takes metform in and amaryl and her glucose is around 150. Pt denies any polyuria, polydipsia. weight gain1 Pt has been gain ing clint. Pt gained 40 pounds during last year HLP Pt has HLP Pt ta kes lipitor Pt denies any myalgia . Pt needs lipitor refilled. pain Pt has chronic l ow back pain Pt denies any worsening pain pt denies any loss of bladder control. Pt failed NSAID and ultram. Pt has DDD. Pt takes norco PRN for pain and dong ok Pt has numbness both leg and feet Pt takes neurontin. Pt denies any claudication. pt denies any cold feet. pt doing ok Pt denies any saddle area paresthesia pain Pt has chronic l ow back pain Pt denies any worsening pain pt denies any loss of bladder control. Pt failed NSAID and ultram. Pt has DDD. Pt takes norco PRN for pain and dong ok Pt has numbness both leg and feet Pt takes neurontin. Pt denies any claudication. pt denies any cold feet. pt doing ok Pt denies any saddle area paresthesia pain Pt has chronic l ow back pain Pt denies any worsening pain pt denies any loss of bladder control. Pt failed NSAID and ultram. Pt has DDD. Pt takes norco PRN for pain and dong ok Pt has numbness both leg and feet Pt takes neurontin. Pt denies any claudication. pt denies any cold feet. pt doing ok Pt denies any saddle area paresthesia renal1 Pt has stage III renal disease. Pt has normal UO. Pt just saw nephrology recently and she had lab done which showed stage III renal disease and mildly high KCL. Pt was told that she does not need medication to lower kcl yet. Pt denies any chest pain or palpitation weight gain Additional infor mation: Pt has been gaining weight. Pt is off remeron. Pt feels better and she is eating more now. HTN Pt has HTN Pt ta kes lisinopril 5 mg daily and her bp is ok Pt denies any chest pain or headache pain Pt has chronic l ow back pain Pt denies any worsening pain pt denies any loss of bladder control. Pt failed NSAID and ultram. Pt has DDD. Pt takes norco PRN for pain and dong ok Pt has numbness both leg and feet Pt takes neurontin. Pt denies any claudication. pt denies any cold feet. pt doing ok Pt denies any saddle area paresthesia pain Pt has chronic l ow back pain Pt denies any worsening pain pt denies any loss of bladder control. Pt failed NSAID and ultram. Pt has DDD. Pt takes norco PRN for pain and dong ok Pt has numbness both leg and feet Pt takes neurontin. Pt denies any claudication. pt denies any cold feet. pt doing ok Pt denies any saddle area paresthesia insomnia1 Pt has history o f insomnia. pt states that she is doing well for insomnia and she stopped taking remeron and she is doing ok. Pt takes cymbalta for anxiety and depression and doing ok. Pt denies any suicidal or homicidal thought pt denies any crying spells HTN Pt has HTN. pt t akes lisinopril daily. Her bp at home is around 170/100 with wrist cuff. Pt denies any chest pain or headache. her bp today in office is 130/70. pain Pt has chronic l ow back pain Pt denies any worsening pain pt denies any loss of bladder control. Pt failed NSAID and ultram. Pt has DDD. Pt takes norco PRN for pain and dong ok Pt has numbness both leg and feet Pt takes neurontin. Pt denies any claudication. pt denies any cold feet. pt doing ok Pt denies any saddle area paresthesia anxiety1 Pt has anxiety a nd depression. Pt has insomnia Pt restarted remeron qhs to help her with insomnia and she is doing ok Pt denies any suicidal or homicidal thought .Pt denies any crying spells Pt also takes cymbalta which works well for her pain1 Pt has chronic l ow back pain Pt denies any worsening pain pt denies any loss of bladder control. Pt failed NSAID and ultram. Pt has DDD. Pt takes norco PRN for pain and dong ok Pt has numbness both leg and feet Pt takes neurontin. Pt denies any claudication. pt denies any cold feet. pt doing ok Pt denies any saddle area paresthesia weight gain1 Pt has been gain ing weight with more calorie and better mood and better appetite and remeron as well HTN Pt has been taki ng lisinopril 5 mg daily and her bp is borderline .Pt denies any chest pain or headache. Pt has not been checking her bp at home. Pt denies any dizziness pain Pt has chronic l ow back pain Pt denies any worsening pain pt denies any loss of bladder control. Pt failed NSAID and ultram. Pt has DDD. Pt takes norco PRN for pain and dong ok Pt has numbness both leg and feet Pt takes neurontin. Pt denies any claudication. pt denies any cold feet. pt doing ok Pt denies any saddle area paresthesia anxiety1 Pt has anxiety a nd depression. Pt has insomnia Pt restarted remeron qhs to help her with insomnia and she is doing ok Pt denies any suicidal or homicidal thought .Pt denies any crying spells Pt also takes cymbalta. HTN Pt has HTN, pt h as not been on any bp meds and her bp is borderline high Pt denies any dizziness. vertigo1 Pt denies any fe eling of dizziness or vertigo and she has not needed to use meclizine at all Pt denies any chest pain or headache . DM Pt has DM Pt edie es metformin, amaryl and januvia. Pt states that her glucose is around 110s Pt denies any worsening neuropathy HTN Pt has HTN Pt youssef s not been taking lisinopril and norvasc and her bp is borderline. pt denies any chest pain or dizziness anxiety1 Pt has chronic a nxiety and depression, Pt has been taking cymbalta and she is doing much better. Pt has not been needing to use ativan Pt states that her anxiety and depression is improving. Pt has been talking to her aunt and feels better now after talking to someone. Pt no longer needs ativan, Pt denies any suicidal or homicidal thought. Pt denies any crying spells pain Pt has chronic l ow back pain Pt denies any worsening pain pt denies any loss of bladder control. Pt failed NSAID and ultram. Pt has DDD. Pt takes norco PRN for pain and dong ok Pt has numbness both leg and feet Pt takes neurontin. Pt denies any claudication. pt denies any cold feet. pt doing ok Pt denies any saddle area paresthesia vertigo1 Pt notices persi stent vertigo for 1-2 months. Pt denies any headache or vision change. Pt states that she feels vertigo only when she turns head. Pt denies any orthostasis. Pt denies any ear pain, Pt denies any tinnitus or hearing loss Pt denies any sinus issue Pt denies any headache. Pt denies any head injury. pt denies any presyncope or syncope or palpitation or chest pain. Pt denies any neck pain HTN Pt has not been taking lisinopril and norvasc and her bp is borderline high today. Pt denies any chest pain or headache. anxiety1 Pt has severe an xiety and depression recently since her sister recently. Pt is on cymbalta but is not helping her mood Pt feels very anxious and depressed and she has frequent crying spells Pt denies any suicidal or homicidal thought. Pt stopped remeron on her own due to weight gain pain Pt has chronic l ow back pain Pt denies any worsening pain pt denies any loss of bladder control. Pt failed NSAID and ultram. Pt has DDD. Pt takes norco PRN for pain and dong ok Pt has numbness both leg and feet Pt takes neurontin. Pt denies any claudication. pt denies any cold feet. pt doing ok Pt denies any saddle area paresthesia weight loss1 Pt has been losi ng weight due to depression and poor appetite. Pt gained 5 pounds since starting remeron last month pt has colonoscopy scheduled for tomorrow. Pt denies any abd pain anxiety1 Pt has chronic a nxiety and depression. Pt has mild insomnia. Pt has been taking remeron qhs in addition to cymbalta and she feels slightly improving with her mood but she gained 5 pounds. Pt has colonoscopy tomorrow. Pt denies any suicidal or homicidal thought .Pt denies any crying spells pain Pt has chronic l ow back pain Pt denies any worsening pain pt denies any loss of bladder control. Pt failed NSAID and ultram. Pt has DDD. Pt takes norco PRN for pain and dong ok Pt has numbness both leg and feet Pt takes neurontin. Pt denies any claudication. pt denies any cold feet. pt doing ok Pt denies any saddle area paresthesia HTN Pt has HTn Pt st opped taking lisinopril ad norvasc and her bp has been averaging around 120/70. Pt denies any dizziness and is much improving. Pt denies any orthostasis. pain1 Pt has chronic l ow back pain Pt denies any worsening pain pt denies any loss of bladder control. Pt failed NSAID and ultram. Pt has DDD. Pt takes norco PRN for pain and dong ok Pt has numbness both leg and feet Pt takes neurontin. Pt denies any claudication. pt denies any cold feet. pt doing ok Pt denies any saddle area paresthesia anxiety1 Pt has chronic a nxiety and depression, which is getting worse, Pt has frequent crying spells and she feels very depressed Pt has loss of appetite and she continues to lose weight Pt denies any abd pain. Pt denies any suicidal or homicidal thought. Her sister recently UTI1 Pt finished abx Pt denies any UTI symptoms UTI1 Pt has UTI but a symptomatic, pt denies any flank pain, fever, chill DM Pt has DM. Pt ta kes metformin and amaryl and januvia. Her glucose is around 110 her a1c is improving .Pt denies any polyuria, polydipsia colon Pt had colonguar d done which is positive. Pt feels constipated and she goes to have BM every 2- 3 days Pt denies any blood in stool. Pt had benign colonoscopy 2018. dizziness1 Pt has been feel ing dizziness recently and some orthostasis. Pt checked her bp and is around 80/60. Currently bp is around 110/70 Pt denies any chest pain or headache HLP Pt has HLP her L DL is over 100 Pt takes lipitor 10 mg daily Pt denies any myalgia renal1 Pt has low renal , which is actually improving Pt denies any flank pain pt sees nephrology Pt has normal UO back pain1 Pt has chronic l ow back pain Pt denies any worsening pain pt denies any loss of bladder control. Pt failed NSAID and ultram. Pt has DDD. Pt takes norco PRN for pain and dong ok Pt has numbness both leg and feet Pt takes neurontin. Pt denies any claudication. pt denies any cold feet. pt doing ok Pt denies any saddle area paresthesia anxiety1 Pt has chronic a nxiety and depression Pt started cymbalta last month and she is doing better than lexapro. her sister just recently and she feels sad Pt denies any suicidal or homicidal thought pt has been some crying spells physical Pt needs annual physical Pt has been intentionally losing weight. Pt has chronic low back pain Pt has DDD Pt denies any sciatica .Pt denies any saddle area paresthesia Pt denies any loss of bowel or bladder control. pt has HTN Pt takes norvasc, lisinopril and her bp is ok. Pt has chronic anxiety and depression and she takes lexapro and she still feels down most of the time. Pt denies any suicidal or homicidal thought Pt denies any crying spells Pt has DM pt takes metformin, januvia and amaryl and her glucose is around 140s at home. Pt is seeing DM education class now. Pt denies any nausea, vomiting, early satiety, change of bowel, diarrhea, blood in stool, abd pain, etc. pain Pt has chronic l ow back pain Pt denies any worsening pain pt denies any loss of bladder control. Pt failed NSAID and ultram. Pt has DDD. Pt takes norco PRN for pain and dong ok Pt has numbness both leg and feet Pt takes neurontin. Pt denies any claudication. pt denies any cold feet. pt doing ok weight loss1 pt has been diet and exercising and intentionally losing weight Pt denies any appetite loss, nausea, vomiting, early satiety, change of bowel, diarrhea, constipation, blood in stool, abd pain, etc pain Pt has chronic l ow back pain Pt denies any worsening pain pt denies any loss of bladder control. Pt failed NSAID and ultram. Pt has DDD. Pt takes norco PRN for pain and dong ok Pt has numbness both leg and feet Pt takes neurontin. Pt denies any claudication. pt denies any cold feet. pt doing ok anxiety1 Pt has chronic a nxiety and depression pt takes lexapro and doing ok. Pt denies any suicidal or homicidal thought Pt denies any crying spells DM Pt takes metform in, amaryl and januvia. Pt states that her glucose is around 140s Pt denies any hypoglycemia. Pt states that she has been eating healthier. Pt is not sure what to eat basically HTN Pt has HTN Pt ta kes lisinopril and norvasc and her bp is stable. Pt denies any chest becca or headache or swelling anxiety1 Pt has chronic a nxiety and depression pt takes lexapro and doing ok. Pt denies any suicidal or homicidal thought Pt denies any crying spells pain Pt has chronic l ow back pain Pt denies any worsening pain pt denies any loss of bladder control. Pt failed NSAID and ultram. Pt has DDD. Pt takes norco PRN for pain and dong ok Pt has numbness both leg and feet Pt takes neurontin. Pt denies any claudication. pt denies any cold feet. pt doing ok renal Pt has stage III renal disease with mild high K. Pt just saw nephrology and she is stable in her renal function ,Pt has normal UO. Pt denies any chest pain or sob DM Pt has DM, Pt st ates that her glucose is around 180s. Her glucose was over 200 at nephrology office but shew as not fasting. Pt denies any polyuria, polydipsia Pt states that she eats a lot of sweets still pain Pt has chronic l ow back pain Pt denies any worsening pain pt denies any loss of bladder control. Pt failed NSAID and ultram. Pt has DDD. Pt takes norco PRN for pain and dong ok Pt has numbness both leg and feet Pt takes neurontin. Pt denies any claudication. pt denies any cold feet. pt doing ok renal Pt has low renal function. Pt just saw renal doctor and was told to follow up in one year. her kcl was mildly high per pt .Pt denies any chest pain or palpitation back pain1 Pt has chronic l ow back pain Pt denies any worsening pain pt denies any loss of bladder control. Pt failed NSAID and ultram. Pt has DDD. Pt takes norco PRN for pain and dong ok Pt has numbness both leg and feet Pt takes neurontin. Pt denies any claudication. pt denies any cold feet. pt doing ok back pain1 Pt has chronic l ow back pain Pt denies any worsening pain pt denies any loss of bladder control. Pt failed NSAID and ultram. Pt has DDD. Pt takes norco PRN for pain and dong ok Pt has numbness both leg and feet Pt takes neurontin. Pt denies any claudication. pt denies any cold feet. pt doing ok DM Pt has DM Pt edie es metformin, amaryl and januvia and her glucose and A1c is improving Pt denies any polyuria, polydipsia Pt states that glucose is around 120s. renal Pt has stable an d actually improving renal function Pt has normal UO phos Her phos is ok n ow PTH ok. Vitamin D low ,Pt is off vitamin d since last March. pain Pt has chronic l ow back pain Pt denies any worsening pain pt denies any loss of bladder control. Pt failed NSAID and ultram. Pt has DDD. Pt takes norco PRN for pain and dong ok Pt has numbness both leg and feet Pt takes neurontin. Pt denies any claudication. pt denies any cold feet. pt doing ok pain1 Pt has chronic l ow back pain Pt denies any worsening pain pt denies any loss of bladder control. Pt failed NSAID and ultram. Pt has DDD. Pt takes norco PRN for pain and dong ok Pt has numbness both leg and feet Pt takes neurontin. Pt denies any claudication. pt denies any cold feet. pt doing ok HLP Pt has HLP Pt ta kes lipitor Pt denies any myalgia. phos1 Pt has high phos pt denies any myalgia, cramp. DM Pt has DM Pt edie es metformin, amaryl and januvia Pt states that her glucose is around 150s. Pt denies any hypoglycemia PT has neuropathy and she takes neurontin and doing ok DM Pt has DM. Pt ta kes metformin, amaryl and januvia. Pt states that her glucose is coming down to around 120 now .Pt denies any polyuria, polydipsia pain Pt has chronic l ow back pain Pt denies any worsening pain pt denies any loss of bladder control. Pt failed NSAID and ultram. Pt has DDD. Pt takes norco PRN for pain and dong ok Pt has numbness both leg and feet Pt takes neurontin. Pt denies any claudication. pt denies any cold feet. pt doing ok DM Pt takes metform in, amaryl and also januvia. Pt states that her glucose is still around 160s. Pt states that she is eating poorly pain1 Pt has chronic l ow back pain Pt denies any worsening pain pt denies any loss of bladder control. Pt failed NSAID and ultram. Pt has DDD. Pt takes norco PRN for pain and dong ok Pt has numbness both leg and feet Pt takes neurontin. Pt denies any claudication. pt denies any cold feet. pt doing ok pain Pt has chronic l ow back pain Pt denies any worsening pain pt denies any loss of bladder control. Pt failed NSAID and ultram. Pt has DDD. Pt takes norco PRN for pain and dong ok Pt has numbness both leg and feet Pt takes neurontin. Pt denies any claudication. pt denies any cold feet. pt doing ok DM Pt has DM. Pt ta kes metformin and amaryl and also januvia Pt states that her glucose is around 130s. Pt denies any polyuria, polydipsia mammo Pt denies any br east issue .Pt needs mammo. Pt denies any breast pain or redness or warmth or nipple discharge pain1 Pt has chronic l ow back pain Pt denies any worsening pain pt denies any loss of bladder control. Pt failed NSAID and ultram. Pt has DDD. Pt takes norco PRN for pain and dong ok Pt has numbness both leg and feet Pt takes neurontin. Pt denies any claudication. pt denies any cold feet. pt doing ok DM Pt has DM Pt edie es metformin and amaryl and she started januvia last moth at 25 mg and her BG is average around 180s still. Pt denies any hypoglycemia. pain1 Pt has chronic l ow back pain Pt denies any worsening pain pt denies any loss of bladder control. Pt failed NSAID and ultram. Pt has DDD. Pt takes norco PRN for pain and dong ok Pt has numbness both leg and feet Pt takes neurontin. Pt denies any claudication. pt denies any cold feet. pt doing ok DM Pt has Dm. Pt ta kes metformin and amaryl. Pt states that her bg is still around 200 despite taking amaryl BID. pt denies any polyuria, polydipsia. DM Patient has been taking Metformin 500 mg twice a day and Amaryl 1 mg twice daily. Patient stated her sugars run 200. Patient denies any polyuria polydipsia. Patient denies any hypoglycemia. Hypertension Additional infor mabel: Patient takes amlodipine and lisinopril her blood pressures were 130/70. Patient needs refill. Back pain 1 Pt has chronic l ow back pain Pt denies any worsening pain pt denies any loss of bladder control. Pt failed NSAID and ultram. Pt has DDD. Pt takes norco PRN for pain and dong ok Pt has numbness both leg and feet Pt takes neurontin. Pt denies any claudication. pt denies any cold feet. pt doing ok anxiety1 Pt has chronic a nxiety and depression, PT takes lexapro and doing ok Pt denies any suicidal or homicidal thought. Pt denies any crying spells. pain Pt has chronic l ow back pain, Pt denies any worsening pain Pt denies any loss of bladder control. Pt takes norco PRN for pain and doing ok renal pt has stage III renal disease. pt has normal UO ,Pt sees nephrology DM Pt takes metform in and amaryl and her A1c is slightly worse now. Pt denies any polyuria, polyuria pt states that her glucose is around 150 at home Pt denies any polyuria, polydipsia HTN Pt has HTN Pt ta kes lisinopril, hctz and norvasc Pt has not been checking her bp at home. Pt needs norvasc refilled pain Pt has chronic l ow back pain Pt denies any worsening pain pt denies any loss of bladder control. Pt failed NSAID and ultram. Pt has DDD. Pt takes norco PRN for pain and dong ok Pt has numbness both leg and feet Pt takes neurontin. Pt denies any claudication. pt denies any cold feet. pt doing ok physical Pt needs annual physical. Pt has HTN. Pt takes norvasc and lisinopril/hctz and her BP is stable. Pt has HLP. Pt takes lipitor. Pt denies any myalgia. Pt has DM. Pt takes metformin and amaryl and her BG is around 110s .Pt denies any hypoglycemia. Pt has chronic low back pain with sciatica and neuropathy. Pt takes norco and neurontin and doing ok. Pt denies any loss of bladder control. Pt has renal disease. Pt sees nephrology. Pt has normal UO. pain Pt has chronic l ow back pain Pt denies any worsening pain pt denies any loss of bladder control. Pt failed NSAID and ultram. Pt has DDD. Pt takes norco PRN for pain and dong ok Pt has numbness both leg and feet Pt takes neurontin. Pt denies any claudication. pt denies any cold feet. pt doing ok HLP Pt has HLP Pt ta kes lipitor Pt denies any myalgia pain Pt has chronic l ow back pain Pt denies any worsening pain pt denies any loss of bladder control. Pt failed NSAID and ultram. Pt has DDD. Pt takes norco PRN for pain and dong ok Pt has numbness both leg and feet Pt takes neurontin. Pt denies any claudication. pt denies any cold feet. pt doing ok anxiety1 Pt has chronic a nxiety and depression. Pt doing ok with lexapro Pt denies any suicidal thought or homicidal thought. pt denies any crying spells DM Pt has DM. Pt ta kes metformin and amaryl. her glucose is 130s Pt denies any polyuria polydipsia. Pt has mild neuropathy and she takes neurontin an doing ok pain Pt has chronic l ow back pain Pt denies any worsening pain pt denies any loss of bladder control. Pt failed NSAID and ultram. Pt has DDD. Pt takes norco PRN for pain and dong ok Pt has numbness both leg and feet Pt takes neurontin. Pt denies any claudication. pt denies any cold feet. pt doing ok pain Pt has chronic l ow back pain Pt denies any worsening pain pt denies any loss of bladder control. Pt failed NSAID and ultram. Pt has DDD. Pt takes norco PRN for pain and dong ok Pt has numbness both leg and feet Pt takes neurontin. Pt denies any claudication. pt denies any cold feet. pt doing ok HTN Pt has HTn. Pt t akes norvasc and lisinopril and bp ok. Pt denies any chest pain or headache pain1 Pt has chronic l ow back pain Pt denies any worsening pain pt denies any loss of bladder control. Pt failed NSAID and ultram. Pt has DDD. Pt takes norco PRN for pain and dong ok Pt has numbness both leg and feet Pt takes neurontin. Pt denies any claudication. pt denies any cold feet. pt doing ok HLP Pt has HLP ,Pt t akes lipitor, Pt denies any myalgia pain Pt has chronic l ow back pain Pt denies any worsening pain pt denies any loss of bladder control. Pt failed NSAID and ultram. Pt has DDD. Pt takes norco PRN for pain and dong ok Pt has numbness both leg and feet Pt takes neurontin. Pt denies any claudication. pt denies any cold feet pain1 Pt has chronic l ow back pain Pt denies any worsening pain pt denies any loss of bladder control. Pt failed NSAID and ultram. Pt has DDD. Pt takes norco PRN for pain and dong ok Pt has numbness both leg and feet Pt takes neurontin. Pt denies any claudication. pt denies any cold feet anxiety1 pt has been feel ing very depressed lately Pt has crying spells pt has anxiety Pt doing much better with lexapro Pt denies any suicidal or homicidal thought. her mood is better chronic pain1 Pt has chronic l ow back pain Pt denies any worsening pain pt denies any loss of bladder control. Pt failed NSAID and ultram. Pt has DDD. Pt takes norco PRN for pain and dong ok depression1 pt has been feel ing very depressed lately Pt has crying spells Pt even had occasional suicidal thought but she does not have any plans and she denies any active suicidal or homicidal thought pt states that some day she feels fine and other time she feels irritable and is very angry and cries a lot. pt states that she never felt this way in the past DM Pt takes metform in and amaryl and her BG is around 120-150 Pt denies any polyuria, polydipsia. Pt does have some neuropathy symptoms both feet. Pt take neurontin postmeno Pt has vaginal d ryness. Pt just seen [facility] and she was given some estrogen cream. Pt will do pelvic and pap soon back pain1 Pt has chronic l ow back pain Pt denies any worsening pain pt denies any loss of bladder control. Pt failed NSAID and ultram GERD1 pt denies any GE RD and she is off zantac. renal Pt has borderlin e low renal. Pt just saw nephrology yesterday and she did some lab work Pt was told everything ok. Pt is on same meds pain1 Pt has been post menopausal for 4 years. Pt does have dry vagina. Pt denies any bleeding pt has painful sex. Pt has low sex drive. Pt states that sometimes she that her urine stopped in the midstream for 4 months and she feels pressure afterward. Pt then coud not go for several hours. Pt denies any pelvic pian. Pt denies any dysuria, or urgency or frequency. Pt denies any leaking urine chronic pain Pt has chronic n manoj and back pain, Pt denies any worsening pain Pt denies any loss of bladder control. Pt denies any injury sob Pt feels occasio jayshree exertional sob. Pt told me she was told that she has copd several years ago from ER pt denies any acute sob, pt denies any hemoptysis, cough Pt denies any calf pain. Pt notices slightly more sob lately mamm Pt denies any br east issue. Pt denies any breast pain or redness or nodule dermatitis1 Pt got poison iv since 3 days ago. Pt c/o itchy rash around leg and arm. Pt denies any trouble with breathing or swallowing glucose1 Pt has borderlin e high glucose and borderline high A1c. Pt denies any polyuria, polydipsia leukopenia1 Pt has mildly lo w wBC. Pt is not neutropenic. Pt denies any recurrent fever or infection. Pt is no longer anemic renal1 Pt has stable st age III renal disease Pt has normal UO, Pt is seeing nephrology. KCL is ok chronic pain1 Pt has chronic l ow back and neck pain. Pt has mild sciatica pt denies any worsening pain. Pt also has neck pain. Pt denies any radiculopathy pt failed NSAID and ultram. PT denies any loss of bladder control metabolic1 Pt has metabolic syndrome. Pt takes metformin her A1c is ok. Tp denies any polyuria, polydipsia. Physical Pt needs annual physical. pt has chronic back and neck pain. Pt has sciatica and leg numbness, Pt denies any worsening pain. Pt has HTn Pt takes lisinopril/hct and norvasc, Her BP is stable, Pt has DM Pt takes metformin and amaryl,, Her glucose is around 120s. Pt denies any polyuria polydipsia, Pt does have mild neuropathy symptoms Pt takes neurontin also . Pt has GERD. Pt takes zantac and she denies any active symptoms Pt has HLP Pt takes lipitor Pt denies any myalgia Pt had neck x ray done which showed possible left carotid blockage HLP Pt has HLP. Pt t akes lipitor. Pt denies any myalgia chronic pain1 Pt has chronic n manoj and back pain Pt denies any radiculopathy Pt has mild sciatica down to both buttock. Pt denies any numbness. Pt failed NSAID and ultram. Pt has not done x ray of neck yet DM Pt takes metform in and amaryl. Pt has not been checking her BG Pt denies any hypoglycemia. Pt has mild neuropathy and doing ok with neurontin Anemia1 Pt has chronic s table mild anemia. Pt denies any blood loss Pt had negative endoscopy. Pt denies any dizziness, chest pain back pain1 pt has chronic l ow back pain with bilateral sciatica and leg numbness. Pt denies any worsening pain, Pt denies any loss of bladder control Pt takes norco PRN for pain pt failed NSAID and ultram. pt is on neurontin. Her insurance does not cover lyrica. Pt has neck pain also. Pt has not done x ray yet. Pt denies any radiculopathy emphysema1 Pt quit smoking 2016. Pt denies any sob, Pt denies any hemoptysis, sob or coughing chronic pain1 Pt has chronic l ow back pain. Pt has mild sciatica pt denies any worsening pain. Pt also has neck pain. Pt has not done x ray yet. Pt denies any radiculopathy pt failed NSAID and ultram GERD1 Pt has GERD alanis y pt had benign egd Pt takes zantac from GI and doing ok. Pt denies any abd pain, nausea, vomiting back pain1 Pt has chronic l ow back pain pt has advanced DDD Pt denies any sciatica or any leg numbness. Pt denies any loss of bladder control. Pt failed NSAID and ultram neck pain1 Pt has been neck pain for several months, worse recently Pt denies any injury pt denies any radiculopathy. Pt feels popping noise when she turn her neck. copd1 Pt has emphysema . Pt denies any sob pt quit smoking last year. . Pt denies any hemoptysis or coughing or sob back pain1 Pt has chronic l ow back pain Pt has DDD pt c/o mild sciatica and leg numbness. Pt denies any worsening pain Pt denies any loss of bladder control Pt failed NSAID and ultram. Pt has 6/10 pain DM Pt takes metform in and amaryl .Her Bg is around 160s. Pt denies any polyuria polydipsia Pt denies any hypoglycemia Her A1c was around 5.8 Pt HLP Pt has HLP. Pt n eeds lipitor refilled Pt denies any myalgia back pain1 Pt has chronic l ow back pain Pt denies any worsening pain pt denies any loss of bladder control Pt has mild sciatica and leg numbness. Pt failed NSAID and ultram HTN Pt has HTn. Pt t akes lisinopril/hctz and norvasc and her BP is high. Pt states that she is out of BP meds. Pt states that she has not had any chance to shredder picker above meds yet. Pt denies any chest pain or headache renal disease1 Pt has renal dis ease. Pt just seen nephrology and she was told that it is probably due history of NSAID use. Pt has normal UO DM Pt has DM pt edie es metformin and amaryl. Pt has not been checking her BG at home. Pt denies any hypoglycemia back pain1 Pt has chronic l ow back pain. Pt denies any worsening pain. Pt denies any loss of bladder control. Pt takes neurontin and norco and doing ok Pt denies any worsening pain DM Pt has DM pt sta maritza that her BG is around 200 lately. Pt takes metformin only. Pt denies any hypoglycemia. Pt has neuropathy symptoms both legs anemia1 Her anemia is ac tually getting better. her EGD and colonoscopy was ok. Pt denies any vaginal bleeding or blood in urine renal1 Pt has borderlin e renal function. Her KCL is ok back pain1 Pt has low back pain. pt denies any worsening pain pt denies any loss of bladder control. Pt has mild sciatica Pt has DDD. Pt failed NSAID and ultram kcl Pt has high KCL and low renal. pt has not heard from nephrology yet Pt denies any chest pain or palpation. Pt took kalaxylate and KCL ok now anemia1 Pt had EGD and c olonoscopy done recently. Pt was told above normal by GI HTn Her BP is ok now with lisinopril/hctz and norvasc. back pain1 Patient has lunchroom aide patricia low back pain. Patient has mild sciatica and leg numbness. Patient denies any loss of bowel bladder control. Patient has 7 out of 10 pain and is sharp in nature. Patient denies any worsening pain. Patient denies any injury. back pain1 Pt has chronic l ow back pain. Pt has mild sciatica. Pt has mild leg numbness. Pt denies any loss of bladder control. Pt takes norco PRN and doing ok. Pt has 5/10 pain renal disease1 Pt has renal dis ease. Pt denies any urine output issue. KCL Pt has high KCL. Pt denies any chest pain or headache or palpitation. Pt has normal UO anemia1 Pt has persisten t anemia. Pt feels mild dizzy sometimes Pt is postmeno and she denies any vaginal bleeding Pt had colonoscopy which showed diverticulosis. No active bleeding Pt has not done EGD yet. Pt denies any upper GI yet. Pt denies any jayy bleeding DM Pt has DM and ne uropathy Pt takes metformin and neurontin and doing ok. Her A1c is borderline. Pt denies any polyuria, polydipsia renal Pt has slightly borderline low renal function with borderline high KCL. pt does eat a lot of nut product Pt denies any chest pain or palpitation Pt has normal urine output anemia1 Pt has borderlin e anemia. Pt denies any dizziness or blood loss Her MCV is normal chronic pain1 Pt has chronic l ow back and hand pain pt does have signs of arthritis. Pt takes norco and ibuprofen PRN pt denies any loss of bladder control. pt denies any sciatica or any numbness. pt has 6/10 low back pain constantly Pt denies any worsening pain PHysical Pt needs annual physical. pt has DM Pt takes metformin. Pt does not check her BG Pt has neuropathy both legs and feet. Pt takes neurontin. Pt takes lipitor and lisinopril. Pt takes norco for arthritic back pain. Pt has MRI done which showed DDd. Pt c/o sciatica and also leg numbness. Pt denies any loss of bladder control . Pt had MRi done 2015. Pt denies any other complaints Instructions Date Instruction Additional Infor mation Special diet education Related t o Body mass index (BMI) 28.0-28.9, adult Increase physical activity Relat ed to Chronic pain syndrome Increase physical activity Relat ed to Dyspareunia Weight management Related to Dys pareunia Special diet education Related t o Body mass index (BMI) 27.0-27.9, adult Increase physical activity Relat ed to Chronic pain syndrome Avoid provocative fo ods: citrus, alcohol, coffee, chocolate, mints. Related to GERD w/o esophagitis Eat smaller meals, n o eating three hours prior to bedtime. Related to GERD w/o esophagitis Elevate head of bed prior to sle ep. Related to GERD w/o esophagitis Special diet education Related t o Body mass index (BMI) 27.0-27.9, adult Increase physical activity Relat ed to Emphysema Weight management Related to Emp hysema Increase physical activity Relat ed to Chronic pain syndrome Weight management Related to Chr onic pain syndrome Special diet education Related t o Body mass index (BMI) 27.0-27.9, adult Increase activity. Related to En cntr for general adult medical exam w/o abnormal findings Special diet education Related t o Body mass index (BMI) 27.0-27.9, adult Follow a low sodium diet. Relate d to Hyperlipidemia Special diet education Related t o Body mass index (BMI) 27.0-27.9, adult Increase physical activity Relat ed to Emphysema Weight management Related to Emp hysema Prescribed dietary intake Relate d to Body mass index (BMI) 27.0-27.9, adult Quit smoking Related to Chron ic pain syndrome Special diet education Related t o Body mass index (BMI) 27.0-27.9, adult Medications as instructed Relate d to Cervicalgia Special diet education Related t o Body mass index (BMI) 27.0-27.9, adult Increase physical activity Relat ed to Chronic pain syndrome Special diet education Related t o Body mass index (BMI) 27.0-27.9, adult Special diet education Related t o Body mass index (BMI) 26.0-26.9, adult Increase physical activity Relat ed to Renal disease Special diet education Related t o Body mass index (BMI) 27.0-27.9, adult Increase physical activity Relat ed to Type 2 diabetes mellitus with diabetic mononeuropathy Weight management Related to Typ e 2 diabetes mellitus with diabetic mononeuropathy Special diet education Related t o Body mass index (BMI) 27.0-27.9, adult Special diet education Related t o Body mass index (BMI) 27.0-27.9, adult Increase physical activity Relat ed to Renal disease Weight management Related to Ane irma Perform monthly self breast examinations. Related to Encntr for general adult medical exam w/o abnormal findings Increase activity. 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
--- OUTSIDE RECORDS SUMMARY | 2024-11-20 01:30 | XMS_ITS | Clinical Summary ---
Author Organization [facility] Address [address] [place] [address] Care Team Providers Care Steward/Stewardess Chief Cargo Vessel Name Role Phone None, Provider MD Primary Care Provider Unavaila ble Immunizations Name Administration Dates Next Due PFIZER COVID-19 (ORIGINAL FO RMULATION, PURPLE CAP) mRNA, LNP-S, PF, 30 MCG/0.3 ML DOSE 03/22/2021,03/01/2021 Social History Tobacco Use Types Packs/Day Years Used Date Smoking Tobacco: Never Assessed Comments Unknown Sex and Gender Information Value Date Recorded Sex Assigned at Not on file Legal Sex Female 2:30 PM CDT Gender Identity Not on file Sexual Orientation Not on file Plan of Treatment Health Maintenance Due Date Last Done Comments Cervical Cancer Screening Pa p Smear (Age 30 to 64) Every 3 Years 1968 Colorectal Cancer Screening Colonoscopy (10 Years) 1968 Annual Physical 1971 Hepatitis C 1986 DTaP, Tdap and Td Vaccines ( 1 - Tdap) 1987 Hepatitis B Vaccines (1 of 3 - 19+ 3-dose series) 1987 Cervical Cancer Screening Pa p with HPV Testing (Age 30 to 64) Every 5 Years 1998 Cervical Cancer Screening wi th HPV 1998 Mammogram Screening 2008 Zoster Vaccines (1 of 2) 2018 COVID-19 Vaccine (3 - 2023-2 5 season) 2024 03/22/2021, 03/01/2021 Meningococcal B Vaccine Aged Out No l onger eligible based on patient's age to complete this topic Meningococcal Vaccine Aged Out No deborah gill eligible based on patient's age to complete this topic Pneumococcal Vaccine: Pediatrics (0 to 5 Years) and At-Risk Patients (6 to 64 Years) Aged Out No longer eligible b ased on patient's age to complete this topic RSV Immunizations Under 20 Months Aged Out No longer eligible b ased on patient's age to complete this topic Insurance [facility] Care Teams Steward/Stewardess Chief Cargo Vessel Relationship Specialty Start Date End Date None, Provider, PCP - General 03/13/21
--- OUTSIDE RECORDS SUMMARY | 2024-11-20 01:30 | XMS_ITS | Clinical Summary ---
Author Organization [facility] Address [address] [place] [id number] Phone Care Team Providers Care Automobile Relocation Engineer Name Role Phone Radu Melvin MD Primary Care Provider [phone] Allergies No known active allergies Medications gabapentin (NEURONTIN) 600 MG tablet one tab three times daily 0 8 Active HYDROcodone-mychal taminophen (NORCO) 5-325 MG per tablet Take 1 tablet by mouth every 6 (six) hours if needed for moderate pain Active Januvia 100 MG tablet Take 100 mg by mouth 1 (one) time each day 1 Active lisinopril (PRINIVIL) 5 MG tablet Take 5 mg by mouth 1 (one) time each day Active cholecalciferol (VITAMIN D-3) 25 MCG (1000 UT) capsule Take 1,000 Units by mouth every 14 (fourteen) days Active metFORMIN (GLUMETZA) 500 MG 24 hr tablet Take 500 mg by mouth 2 (two) times a day with meals Active atorvastatin (LIPITOR) 20 MG tablet Take 20 mg by mouth 1 (one) time each day Active glimepiride (AMARYL) 2 MG tablet Take 2 mg by mouth 1 (one) time each day before breakfast Active Dulaglutide 3 MG/0.5ML solution pen-injector Inject under the skin Active DULoxetine (CYMBALTA) [address] capsule Take 60 mg by mouth 1 (one) time each day Active ARIPiprazole (ABILIFY) 5 MG tablet Take 5 mg by mouth 1 (one) time each day Active BUPROPION HCL ER, XL, PO Take by mouth Activ e Active Problems Problem Noted Date Diagnosed Date Hyperkalemia 01/09/2023 Diabetes mellitus with renal manifestations, type II or unspecified type, uncontrolled 07/24/2018 Essential (primary) hypertension 07/24/2018 Stage 3a chronic kidney disease 06/17/2018 Resolved Problems Problem Noted Date Diagnosed Date Resolved Date Vaginal dryness 02/10/2020 05/23/2022 Hyperlipidemia 07/24/2018 02/10/2020 Family History Medical History Relation Comments COPD Father Diabetes Mother Diabetes mellitus Mother Relation Status Comments Father Mother Social History Tobacco Use Types Packs/Day Years Used Date Smoking Tobacco: Former Smokeless Tobacco: Never Tobacco Cessation:Counseling Given: Not Answered Alcohol Use Standard Drinks/Week Comments Never 0 (1 standard drink = 0.6 oz pur e alcohol) AUDIT-C Answer Date Recorded Frequency of Alcohol Consumption Never 05/21/2019 Average Number of Drinks Not on file 019 Frequency of Binge Drinking Not on file 04/2019 Comments Unknown Sex and Gender Information Value Date Recorded Sex Assigned at Not on file Legal Sex Female 9:08 AM MST Gender Identity Not on file Sexual Orientation Not on file Last Filed Vital Signs Vital Sign Reading Time Taken Comments Blood Pressure 140/92 03/26/2024 3:54 PM CDT Pulse 96 03/26/2024 3:54 PM CDT Temperature 36.4 C (97.6 F) 03/23/2021 2:22 PM CDT Respiratory Rate - - Oxygen Saturation 97% 03/07/2023 4:20 PM CDT Inhaled Oxygen Concentration - - Weight 82.1 kg (181 lb) 03/26/2024 3:54 PM CDT Height 162.6 cm (5' 4 ) 03/26/2024 3:54 PM CDT Body Mass Index 31.07 03/26/2024 3:54 PM CDT Plan of Treatment Health Maintenance Due Date Last Done Comments Diabetic Foot Exam 1978 Ophthalmology Exam 1978 Pneumococcal PPSV23 Highest Risk Adult (1 of 3 - PCV13) 1987 COVID-19 Vaccine ( season) 04/13/202405/2021, 03/01/2021 Influenza Vaccine (Season Ended) 2025 Insurance [employer] , [address] [place] [address] PM INTERFACED INSURANCE Care Teams Automobile Relocation Engineer Relationship Specialty Start Date End Date Radu Melvin MD [address] [place] [id number] PCP - General Family Medicine 11/27/18
--- OUTSIDE RECORDS SUMMARY | 2024-11-20 01:30 | XMS_ITS | Clinical Summary ---
Author Organization [facility] Address [address] [place] [address] Phone Care Team Providers Care Podiatry Professor Name Role Phone Radu Melvin Primary Care Provider [phone] Clay Cadet MD Unavailable [phone] Vic Valencia MD Unavailable [phone] Allergies No known active allergies Medications gabapentin (NEURONTIN) 600 MG Tablet Take by mouth. 8 Active glimepiride (AMARYL) 2 MG Tablet Take 2 mg by mouth 2 times daily. 3 Active metFORMIN (GLUCOPHAGE) 500 MG Tablet TAKE 1 TABLET BY MOUTH TWICE DAILY WITH THE MORNING AND EVENING MEAL 3 Active ergocalciferol (VITAMIN D) 82970 UNIT Capsule TAKE 1 CAPSULE BY MOUTH EVERY 2 WEEKS 3 Active lisinopril (PRINIVIL, ZESTRIL) 5 MG Tablet 3 Active atorvastatin (LIPITOR) 20 MG Tablet Take 20 mg by mouth. Active Januvia 100 MG Tablet 3 Active DULoxetine (CYMBALTA) [address] Particles Take 60 mg by mouth daily. 3 Active Trulicity 3 MG/0.5ML Solution Pen-injector ADMINISTER 3 MG UNDER THE SKIN EVERY WEEK 3 Active ferrous sulfate 325 (65 Fe) MG Tablet Take 1 Tablet by mouth 2 times daily. 60 Tablet 3 4 Active HYDROcodone-mychal taminophen (NORCO) 5-325 MG Tablet 0 4 Active buPROPion (WELLBUTRIN) 150 MG XL tablet Take 150 mg by mouth every morning. 4 Active ARIPiprazole (ABILIFY) 10 MG Tablet Take 10 mg by mouth daily. 4 Active Active Problems Problem Noted Date Diagnosed Date Anemia of chronic renal failure, stage 3a 2023 Iron deficiency Family History Medical History Relation Name Comments Chronic Obstructive Pulmonary Disease Father Diabetes Mother Relation Name Status Comments Father Mother Social History Tobacco Use Types Packs/Day Years Used Date Smoking Tobacco: Former Cigarettes Q uit: 2017 Smokeless Tobacco: Never Tobacco Cessation:Counseling Given: Not Answered Alcohol Use Standard Drinks/Week Comments Never 0 (1 standard drink = 0.6 oz pur e alcohol) PHQ-2 Answer Date Recorded Total Score - Questions 1-9 12/2023 Comments Unknown Sex and Gender Information Value Date Recorded Sex Assigned at Not on file Legal Sex Female 10:58 PM CDT Gender Identity Not on file Sexual Orientation Not on file Last Filed Vital Signs Vital Sign Reading Time Taken Comments Blood Pressure 140/80 07/24/2024 9:31 AM TELEPHONE AD TAKER Pulse 100 07/24/2024 9:31 AM TELEPHONE AD TAKER Temperature 36.4 C (97.6 F) 07/24/2024 9:31 AM TELEPHONE AD TAKER Respiratory Rate 18 07/24/2024 9:31 AM TELEPHONE AD TAKER Oxygen Saturation 96% 07/24/2024 9:31 AM TELEPHONE AD TAKER Inhaled Oxygen Concentration - - Weight 78.5 kg (173 lb) 07/24/2024 9:31 AM TELEPHONE AD TAKER Height 163.8 cm (5' 4.5 ) 07/24/2024 9:31 AM TELEPHONE AD TAKER Body Mass Index 29.24 07/24/2024 9:31 AM TELEPHONE AD TAKER Plan of Treatment Upcoming Encounters Date Type Department Care Team (Late st Contact Info) Description 01/22/2025 9:30 AM CDT Office Visit [facility] [address] [phone] Clay Cadet MD [address] [place] [address] Health Maintenance Due Date Last Done Comments Hepatitis C Virus (HCV) Screening 1968 Mammogram 1968 TdaP Immunization 1968 Hepatitis B Immunization (1 of 3 - 19+ 3-dose series) 1987 Pneumococcal Immunization (5 0+ years) (1 of 2 - PCV) 1987 Pap Smear 1989 Cervical Cancer Screening (CCS) 1998 HPV/Cotest 1998 Colonoscopy 2013 Colorectal Cancer Screening 2013 Cologuard 2018 Immunochemical Fecal Occult Blood 2018 Zoster Immunization (1 of 2) 2018 Influenza Immunization (#1) 2024 06/26/2017 SARS-COV-2 Immunization ( season) 2024 03/22/2021, 03/01/2021 Respiratory Syncytial Virus (RSV) Immunization (Adult) (1 - 1-dose 75+ series) 2043 Meningococcal Immunization (ACWY) Aged Out No longer eligible b ased on patient's age to complete this topic Rotavirus Immunization Aged Out No lo nger eligible based on patient's age to complete this topic Insurance MEDICAID [employer] Care Teams Podiatry Professor Relationship Specialty Start Date End Date Radu Melvin [address] [place] [address] PCP - General Family Medicine 07/13/23 Clay Cadet MD [address] [place] [address] Consulting Physician Oncology 07/13/23 Vic Valencia MD [address] [facility] [address] [place] [address] Internal Medicine 01/24/24
[2024-11-20 08:51] LABS: Glucose Point of Care 175 mg/dl (65-105)
[2024-11-20] MEDS: LACTATED RINGERS 1,000 ML 150 ML IV CONT (08:51)
--- NOTE | 2024-11-20 08:55 | WPDANESEPPF ---
Anes - Initial Pre Proc Eval Procedure: Operation Date: 11/20/24 09:30 Proposed Procedures p Colonoscopy - Kevin Martines MD Date/Time: 11/20/24 08:55 Surgeon: Kevin Martines MD Pre Op Diagnosis: hx of colon polyps Patient Data Age: 54 Gender: F Height: 1.63 m Weight: 72.7 kg Allergies Allergy/AdvReac Type Severity Reaction Status Date / Time No Known Allergies Allergy Mild Verified 11/20/24 08:51 Home Medications ?Medication ?Instructions ?Recorded ?Confirmed ?Type atorvastatin 20 mg tablet 20 mg PO DAILY 10/14/21 11/20/24 History duloxetine 60 mg capsule,delayed 60 mg PO DAILY 10/14/21 11/20/24 History release ergocalciferol (vitamin D2) 1,250 See Rx Instructions .Route .COMPLEX 10/14/21 11/20/24 History mcg (50,000 unit) capsule gabapentin 600 mg tablet 600 mg PO TID 10/14/21 11/20/24 History glimepiride 2 mg tablet 2 mg PO BID 10/14/21 11/20/24 History hydrocodone 5 mg-acetaminophen 325 1 tablet PO BID PRN Pain 10/14/21 11/20/24 History mg tablet metformin 500 mg tablet 500 mg PO BID 10/14/21 11/20/24 History mirtazapine 15 mg tablet 15 mg PO HS 10/14/21 11/20/24 History sitagliptin phosphate 100 mg 100 mg PO DAILY 10/14/21 11/20/24 History tablet (Januvia) bupropion HCl 150 mg 24 hr tablet, 150 mg PO DAILY 11/11/24 11/20/24 History extended release dulaglutide 3 mg/0.5 mL 0.75 mg subcut WEEKLY 11/11/24 11/20/24 History subcutaneous pen injector (Trulicity) lisinopril 5 mg tablet 5 mg PO DAILY 11/11/24 11/20/24 History Laboratory Tests 11/20/24 08:49 POC Capillary Glucose 175 H mg/dl (65-105) Patient hx anesthesia problems: none Family hx anesthesia problems: none Results Review: All pre-operative results and documents have been reviewed as part of the pre-operative evaluation. [facility] Past Medical History Medical History (Updated 10/26/21 @ 10:59 by Kevin Martines MD) Positive colorectal cancer screening using Cologuard test Diabetes HTN (hypertension) Hyperlipidemia COPD (chronic obstructive pulmonary disease) Surgical History Surgical History (Updated 10/26/21 @ 10:51 by Marcus Dugan MD) History of section X 3 Social History Social History Smoking packs per day: 3 Smoking cigarettes per day: 60.0 Years smoked: 30 Smoking pack-years: 90.00 Smoking status: Former smoker Tobacco type: cigarettes Smoking end date: 08/13/16 Alcohol intake: never Substance use: current Substance use type: marijuana Other substance usage details: smokes marijuana daily Living arrangements: with family Spiritual care concerns: No Anes - Eval Final PreProcedure Day of Procedure 11/20/24 08:55 Patient weight: normal Heart: regular rate and rhythm Lungs: clear to auscultation Airway: Mallampati scale class II Neurological: alert and oriented Last oral intake: >/= 8 hours ASA classification: III Emergent: no Anesthetic plan: proceed Anesthesia type and monitoring: general GIVS and standard monitoring Results Review: All pre-operative results and documents have been reviewed as part of the pre-operative evaluation. Informed Consent: The patient's anesthetic plan and its attendant risks and benefits were discussed with the patient/family/POA. Questions were solicited and answers provided to the satisfaction of the patient/family/POA.
--- NOTE | 2024-11-20 08:59 | P.HP_ITS ---
History of Present Illness History of Present Illness Consent: Risks, benefits, and alternatives have been discussed and questions answered. Patient agrees to proceed with procedure. Chief complaint: hx of colon polyps Narrative: Vinita Arce is a 54 year old female with colon polyps 3 years ago Review of Systems Review of Systems: All systems reviewed & are unremarkable except as noted in HPI and below PMFSH Past Medical History Medical History (Updated 11/20/24 @ 09:00 by Kevin Martines MD) Adenomatous colon polyp Positive colorectal cancer screening using Cologuard test Diabetes HTN (hypertension) Hyperlipidemia COPD (chronic obstructive pulmonary disease) Surgical History Surgical History (Updated 10/26/21 @ 10:51 by Marcus Dugan MD) History of section X 3 Social History Social History Smoking packs per day: 3 Smoking cigarettes per day: 60.0 Years smoked: 30 Smoking pack-years: 90.00 Smoking status: Former smoker Tobacco type: cigarettes Smoking end date: 08/13/16 Alcohol intake: never Substance use: current Substance use type: marijuana Other substance usage details: smokes marijuana daily Living arrangements: with family Spiritual care concerns: No Meds Home Medications and Allergies Home Medications ?Medication ?Instructions ?Recorded ?Confirmed ?Type atorvastatin 20 mg tablet 20 mg PO DAILY 10/14/21 11/20/24 History duloxetine 60 mg capsule,delayed 60 mg PO DAILY 10/14/21 11/20/24 History release ergocalciferol (vitamin D2) 1,250 See Rx Instructions .Route .COMPLEX 10/14/21 11/20/24 History mcg (50,000 unit) capsule gabapentin 600 mg tablet 600 mg PO TID 10/14/21 11/20/24 History glimepiride 2 mg tablet 2 mg PO BID 10/14/21 11/20/24 History hydrocodone 5 mg-acetaminophen 325 1 tablet PO BID PRN Pain 10/14/21 11/20/24 History mg tablet metformin 500 mg tablet 500 mg PO BID 10/14/21 11/20/24 History mirtazapine 15 mg tablet 15 mg PO HS 10/14/21 11/20/24 History sitagliptin phosphate 100 mg 100 mg PO DAILY 10/14/21 11/20/24 History tablet (Januvia) bupropion HCl 150 mg 24 hr tablet, 150 mg PO DAILY 11/11/24 11/20/24 History extended release dulaglutide 3 mg/0.5 mL 0.75 mg subcut WEEKLY 11/11/24 11/20/24 [facility] lisinopril 5 mg tablet 5 mg PO DAILY 11/11/24 11/20/24 History Allergies Allergy/AdvReac Type Severity Reaction Status Date / Time No Known Allergies Allergy Mild Verified 11/20/24 08:51 Exam Const: General: comfortable and no acute distress HENMT: Face/Nose/Sinus: Normal nares present Eyes: General: appearance normal, both eyes and all related structures Neck: Neck: no JVD Resp: Auscultation: clear to auscultation bilaterally Cardio: Rate: regular rate Rhythm: regular rhythm GI: Inspection: non-distended GI Palp: Yes Soft to palpation Skin: General skin exam: normal color Neuro: General: gait normal Speech: normal speech Extrem: General: normal to inspection Psych: Mental Status: mental status grossly normal Assessment and Plan Assessment and plan (1) Adenomatous colon polyp: Code(s): D12.6 - Benign neoplasm of colon, unspecified Status: Acute Assessment and Plan: colonoscopy
--- NOTE | 2024-11-20 09:32 | SUR.OPER ---
1 Ascending colon polyp not retrieved Dr. Roberts notified.
[2024-11-20 09:35] VITALS: BP 101/55; PULSE 102; RESP 25; O2SAT 99
[2024-11-20 09:45] VITALS: BP 118/60; PULSE 85; RESP 20; O2SAT 100
[2024-11-20 09:55] VITALS: BP 133/47; PULSE 79; RESP 19; O2SAT 100
== END 2024-11-20 10:06 | disposition home or self-care (01) ==
PROVIDERS: PCP Emergency Medicine; Referring Provider Emergency Medicine; Visit Provider Internal Medicine Gastroenterology
PROC: 0DJD8ZZ Inspection of Lower Intestinal Tract, Via Natural or Artificial Opening Endoscopic (ICD-10-PCS; CPT 45378; principal; 2024-11-20 09:30)
DX: Z12.11 Encounter for screening for malignant neoplasm of colon (principal); D12.0 Benign neoplasm of cecum; K63.5 Polyp of colon; K62.1 Rectal polyp; K64.8 Other hemorrhoids; E11.9 Type 2 diabetes mellitus without complications; I10 Essential (primary) hypertension; E78.5 Hyperlipidemia, unspecified; J44.9 Chronic obstructive pulmonary disease, unspecified; F12.90 Cannabis use, unspecified, uncomplicated; Z79.84 Long term (current) use of oral hypoglycemic drugs; Z79.891 Long term (current) use of opiate analgesic; Z79.85 Long-term (current) use of injectable non-insulin antidiabetic drugs; Z98.890 Other specified postprocedural states; Z87.891 Personal history of nicotine dependence
CPT/HCPCS: 45380; 45385; 82948; 88305; J2003; J2704; J7120